=== PATIENT | female | born 1935 | race Caucasian/White ===

== ENCOUNTER 2017-03-03 12:26 | Inpatient (IN) ==
--- NOTE | 2017-03-03 13:08 | Emergency Department Note ---
Disposition Clinical Impression: Bladder mass, Hydroureteronephrosis, Generalized weakness, Weight loss, non- intentional Disposition: Admitted As Inpatient Condition: Undetermined Referrals: Keenan Poe DO [Primary Care Provider] - Forms: ED Satisfaction Letter Time of Disposition: 15:50 Weakness HPI - General Chief complaint: ED Weakness Stated complaint: Dizziness,weak Time Seen by Provider: 03/03/17 12:55 Source: patient, family Mode of arrival: wheelchair Limitations: no limitations Nursing Notes Reviewed: Yes Vital Signs Reviewed: Yes - History of Present Illness HPI Narrative: 81-year-old female arrives [facility] emergency department with complaint of generalized weakness that has been progressively getting worse over the course of the past 4 weeks. The patient was recently treated for urinary tract infection and progressively has become weak since then. The patient has been experiencing weight loss as well. Her PCP is actually ordered her a abdominal CT scan with concern for this weight loss and generalized malaise feeling. The patient denies any fevers, chills, dysuria, chest pain, difficulty breathing but does admit to a small amount abdominal pain on palpation. She is resting comfortably in the room but is very weak on evaluation. The patient denies any other complaints at this time. Family is very concerned for weakness and does not feel as though he can take care of her at home at this time. They stated that at some point he would like to send her to a rehabilitation facility for further care. Pt Subjective Complaint: generalized weakness/fatigue Onset (ago): week(s) (4) Duration: constant, gradually worsening Location: generalized Migration: none Pain Severity: none Pain Scale: 0 Improves with: none Worsens with: none Associated symptoms: Reports: loss of appetite - Related Data Home Medications Medication Instructions Recorded Confirmed Levothyroxine Sodium 75 mcg PO QAM 03/03/17 03/03/17 Multivit-Min/FA/Lycopen/Lutein 1 each PO DAILY 03/03/17 03/03/17 [Centrum Silver Tablet] amLODIPine [Norvasc] 5 mg PO DAILY 03/03/17 03/03/17 Allergies Allergy/AdvReac Type Severity Reaction Status Date / Time Penicillins Allergy Hives Verified 03/03/17 12:30 All systems ED: reviewed and negative except as stated. Constitutional: Reports: weakness. Denies: fever, chills Cardiovascular: Denies: chest pain, palpitations, dyspnea on exertion Respiratory: Denies: cough, dyspnea, wheezes Gastrointestinal: Denies: abdominal pain, nausea, vomiting Neurological: Reports: weakness. Denies: headache, numbness, paresthesias, confusion, abnormal gait, vertigo Endocrine: Reports: fatigue Past Medical History - Past Medical History Attestation: Yes The following information was validated with the patient. Source: patient, obtained from family Medical history: Reports: hypertension, thyroid disease Surgical history: Reports: non-contributory Psychiatric history: Reports: no psych history - Social History Smoking Status: Never smoker Smokeless Tobacco Status: No Alcohol use: Reports: none Drug use: Reports: none Physical Exam - General Limitations: no limitations General appearance: alert, in no apparent distress - Head Head exam: atraumatic, normocephalic, normal inspection - Eye Eye exam: Present: normal appearance, PERRL, EOMI - ENT ENT exam: normal exam, normal oropharynx, mucous membranes moist - Neck Neck exam: Present: normal inspection, full ROM, trachea midline - Chest Chest inspection: Present: normal inspection, symmetric chest wall rise - Respiratory Respiratory exam: Present: normal lung sounds bilaterally - Cardiovascular Cardiovascular exam: Present: regular rate, normal rhythm, normal heart sounds - Abdominal Exam Abdominal exam: Present: soft, Non-Tender. Absent: tenderness, distention, guarding, rebound, rigidity - Extremities Exam Extremities exam: Present: normal inspection, full ROM. Absent: tenderness, pedal edema - Neurological Exam Neurological exam: Present: alert, oriented X3, CN II-XII intact - Expanded Neurological Exam Patient oriented to: Present: person, place, time Course - Consultations Consultation #1: Spoke with Dr. Luna who will see the patient. Recommended admission to hospitalist. 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 The patient has severe hydroureteronephrosis on the right side associated with the artery lesion. Urology recommended admission to hospitalist service. We began the patient on Rocephin for probable UTI associated with this. The patient and family members were made aware and agreed to plan. - Lab Data Lab results reviewed: Yes I reviewed the patient's lab results. Result diagrams: 03/03/17 13:25 03/03/17 13:25 Lab Results 03/03/17 03/03/17 03/03/17 Range/Units 13:20 13:25 13:25 WBC 26.5 H (4.3-11.1) K/mcL RBC 3.32 L (3.82-4.97) M/mcL Hgb 8.4 L (11.5-15.4) g/dL Hct 26.5 L (35.3-44.9) % MCV 79.8 L (83.0-100.0) fL MCH 25.3 L (28.0-33.3) pg MCHC 31.7 (31.6-35.5) g/dL RDW 16.3 H (11.5-14.5) % Plt Count 413 H (140-400) K/mcL MPV 9.1 L (9.4-12.4) fL Seg Neutrophils % 88.0 % Lymphocytes % 6.0 % Monocytes % 6.0 % Neutrophils # 23.3 H (1.6-8.9) K/mcL Lymphocytes # 1.6 (0.6-4.6) K/mcL Monocytes # 1.6 H (0.0-1.3) K/mcL Platelet Estimate Normal (Normal) Sodium 132 L (136-145) mEq/L Potassium 4.2 (3.5-4.5) mEq/L Chloride 98 (98-109) mEq/L Carbon Dioxide 24 (19-29) mEq/L BUN 24 H (7-20) mg/dL Creatinine 1.71 H (0.57-1.11) mg/dL Est GFR ( Amer) 35 L (> 60) Est GFR (Non-Af Amer) 29 L (> 60) BUN/Creatinine Ratio 14 (6-26) Glucose 94 (70-99) mg/dL Calculated Osmolality 278 L (280-300) Calcium 8.8 (8.6-10.8) mg/dL Total Bilirubin (0.2-1.2) mg/dL Direct Bilirubin (0.0-0.5) mg/dL Indirect Bilirubin (0.0-1.2) mg/dL AST (5-34) Units/L ALT (0-55) Units/L Alkaline Phosphatase (38-126) Units/L Troponin I (0-0.03) ng/mL Serum Total Protein (6.0-8.3) g/dL Albumin (3.5-5.0) g/dL Globulin (2.4-3.5) g/dL Albumin/Globulin Ratio (1.1-2.2) Urine Color Dark Yellow (Yellow) Urine Clarity Turbid A (Clear) Urine pH 6.5 (5.0-8.0) pH Units Ur Specific Pearl 1.018 (1.010-1.025) Urine Protein 100 H (Neg-Trace) mg/dL Urine Glucose (UA) Normal (Normal) mg/dL Urine Ketones Trace H (Negative) mg/dL Urine Blood Moderate H (Negative) Urine Nitrite Negative (Negative) Urine Bilirubin Small H (Negative) Urine Urobilinogen Normal (Normal) mg/dL Ur Leukocyte Esterase Large H (Negative) Urine Microscopic RBC 30-50 H (0-3) per hpf Urine Microscopic WBC TNTC H (0-3) per hpf Ur Squamous Epith Cells Moderate H (None-Few) per lpf Urine Bacteria Many H (None-Few) per hpf Hyaline Casts Few (None-Few) per lpf Ur Culture Indicated? YES A (NO) 03/03/17 03/03/17 Range/Units 13:25 13:25 WBC (4.3-11.1) K/mcL RBC (3.82-4.97) M/mcL Hgb (11.5-15.4) g/dL Hct (35.3-44.9) % MCV (83.0-100.0) fL MCH (28.0-33.3) pg MCHC (31.6-35.5) g/dL RDW (11.5-14.5) % Plt Count (140-400) K/mcL MPV (9.4-12.4) fL Seg Neutrophils % % Lymphocytes % % Monocytes % % Neutrophils # (1.6-8.9) K/mcL Lymphocytes # (0.6-4.6) K/mcL Monocytes # (0.0-1.3) K/mcL Platelet Estimate (Normal) Sodium (136-145) mEq/L Potassium (3.5-4.5) mEq/L Chloride (98-109) mEq/L Carbon Dioxide (19-29) mEq/L BUN (7-20) mg/dL Creatinine (0.57-1.11) mg/dL Est GFR ( Amer) (> 60) Est GFR (Non-Af Amer) (> 60) BUN/Creatinine Ratio (6-26) Glucose (70-99) mg/dL Calculated Osmolality (280-300) Calcium (8.6-10.8) mg/dL Total Bilirubin 0.6 (0.2-1.2) mg/dL Direct Bilirubin 0.3 (0.0-0.5) mg/dL Indirect Bilirubin 0.3 (0.0-1.2) mg/dL AST 27 (5-34) Units/L ALT 23 (0-55) Units/L Alkaline Phosphatase 90 (38-126) Units/L Troponin I 0.00 (0-0.03) ng/mL Serum Total Protein 7.0 (6.0-8.3) g/dL Albumin 2.2 L (3.5-5.0) g/dL Globulin 4.8 H (2.4-3.5) g/dL Albumin/Globulin Ratio 0.5 L (1.1-2.2) Urine Color (Yellow) Urine Clarity (Clear) Urine pH (5.0-8.0) pH Units Ur Specific Pearl (1.010-1.025) Urine Protein (Neg-Trace) mg/dL Urine Glucose (UA) (Normal) mg/dL Urine Ketones (Negative) mg/dL Urine Blood (Negative) Urine Nitrite (Negative) Urine Bilirubin (Negative) Urine Urobilinogen (Normal) mg/dL Ur Leukocyte Esterase (Negative) Urine Microscopic RBC (0-3) per hpf Urine Microscopic WBC (0-3) per hpf Ur Squamous Epith Cells (None-Few) per lpf Urine Bacteria (None-Few) per hpf Hyaline Casts (None-Few) per lpf Ur Culture Indicated? (NO) - Radiology Data Radiology results reviewed: Yes I reviewed the patient's radiology results.
[2017-03-03 13:38] LABS: Bilirubin,Urine Small (Negative); Blood,Urine Moderate (Negative); Clarity,Urine Turbid (Clear); Color,Urine Dark Yellow (Yellow); Glucose,Urine (UA) Normal (Normal); Ketones,Urine Trace mg/dL (Negative); Leukocyte Esterase,Urine Large (Negative); Nitrite,Urine Negative (Negative); PH,Urine 6.5 pH Units (5.0-8.0); Protein,Urine 100 mg/dL (Neg-Trace); Specific Gravity,Urine 1.018 (1.010-1.025); Urobilinogen,Urine Normal (Normal)
[2017-03-03 13:42] LABS: Bacteria,Urine Many per hpf (None-Few); Hyaline Casts,Urine Few per lpf (None-Few); Squamous Epithelial Cell,Urine Moderate per lpf (None-Few); WBC,Urine TNTC per hpf (0-3)
[2017-03-03 13:48] LABS: Hematocrit 26.5 % (35.3-44.9); Hemoglobin 8.4 g/dL (11.5-15.4); Mean Corpuscular HGB Conc 31.7 g/dL (31.6-35.5); Mean Corpuscular Hemoglobin 25.3 pg (28.0-33.3); Mean Corpuscular Volume 79.8 fL (83.0-100.0); Mean Platelet Volume 9.1 fL (9.4-12.4); Platelet Count 413 K/mcL (140-400); Red Blood Count 3.32 M/mcL (3.82-4.97); Red Cell Distribution Width 16.3 % (11.5-14.5)
[2017-03-03 13:51] LABS: RBC,Urine 30-50 per hpf (0-3)
--- NOTE | 2017-03-03 13:54 | Emergency Department Note ---
START Narrative - START START: I examined this patient and my medical decision-making was reviewed with the Resident Physician. I agree with the documented findings, disposition and treatment plan as described except to the extent set forth below. 81-year-old female presents emergency room for weakness. She has had some intermittent abdominal discomfort. She feels like she has had urine problems with dysuria. She had a white count 26,000. We evaluated her for possible urinary tract infection witih systemic findings. iv fluids, antibiotics, ct abd cxr clear. pt unable to take care of herself at home due to weakness.
[2017-03-03 14:05] LABS: Calcium 8.8 mg/dL (8.6-10.8); Potassium 4.2 mEq/L (3.5-4.5)
[2017-03-03 14:07] LABS: Albumin 2.2 g/dL (3.5-5.0); Albumin/Globulin Ratio 0.5 (1.1-2.2); Bilirubin,Direct 0.3 mg/dL (0.0-0.5); Bilirubin,Indirect 0.3 mg/dL (0.0-1.2); Bilirubin,Total 0.6 mg/dL (0.2-1.2); Globulin 4.8 g/dL (2.4-3.5)
[2017-03-03] MEDS ORDERED: 0.9 % Sodium Chloride 1,000 ML IVC SCH (14:15)
[2017-03-03 14:22] LABS: Lymphocytes # 1.6 K/mcL (0.6-4.6); Monocytes # 1.6 K/mcL (0.0-1.3); Neutrophils # 23.3 K/mcL (1.6-8.9); Platelet Estimate Normal (Normal)
[2017-03-03] MEDS ORDERED: Acetaminophen 325 MG TABLET PO PRN (17:16)
--- NOTE | 2017-03-03 17:34 | Urology - Consult Note ---
Date of Encounter: 03/03/17 Time of Encounter: 17:32 - Assessment and Plan (1) Bladder mass Current Visit: Yes Status: Acute Assessment and plan: 81-year-old woman with a large bladder mass. I discussed options with her. We discussed observation versus transurethral resection of bladder tumor. I recommend proceeding with a transurethral resection of bladder tumor to provide a tissue diagnosis and to provide staging. She was informed of the risks of the surgery which include but are not limited to bleeding, infection, injury to structures, need for further procedures, incomplete treatment, bladder perforation, need for open repair, need for catheter, and the risk of anesthesia. She will discuss further with her family and they'll make a decision regarding operative planning. I will follow along. (2) Hydroureteronephrosis Current Visit: Yes Status: Acute Assessment and plan: She has severe right hydroureteronephrosis. This mass seems to extend through the ureterovesical junction. I recommend placement of a right nephrostomy tube. I will check an INR today. She'll be nothing by mouth past midnight. I informed the radiology after-hours line regarding the procedure. Urology CN:HPI Consult date: 03/03/17 Reason for consult Urology: Other (Bladder mass) Requesting physician: Daniel Peralta History of present illness: 81-year-old woman presented to the emergency department today with progressive weakness and weight loss. She underwent a CT scan of the abdomen and pelvis which showed a large mass within the bladder and evidence of severe right hydroureteronephrosis. There was mild dilation of the left ureter and renal pelvis. The mass extends within the bladder and seems to move outside of the expected location of the bladder lateral on the right side. She denies any history of hematuria. She has some urinary urgency and occasional incontinence. She says she is a lifelong nonsmoker and denies living with a smoker. She worked as a clerk secretary in the school system. Past Med Surg Social Fam HX - Past Medical History Medical history: hypertension, thyroid disease Psychiatric history: no psych history - Past Surgical History Surgical History: non-contributory - Social History Smoking Status: Never smoker Smokeless Tobacco Status: No Alcohol use: none Drug use: none - Family History Mother History Unknown: Yes Living Status: Medications and Allergies Levothyroxine Sodium 75 mcg PO QAM 03/03/17 [History] Multivit-Min/FA/Lycopen/Lutein [Centrum Silver Tablet] 1 each PO DAILY 03/03/17 [History] amLODIPine [Norvasc] 5 mg PO DAILY 03/03/17 [History] 3 Allergy/AdvReac Type Severity Reaction Status Date / Time Penicillins Allergy Hives Verified 03/03/17 12:30 Review of Systems - Constitutional weakness, no chills, no fever(s) - EENT Nose, mouth and throat: no dizziness - Cardiovascular no chest pain - Respiratory no dyspnea - Gastrointestinal no nausea, no vomiting - Genitourinary Genitourinary: no flank pain, no hematuria - Musculoskeletal no back pain - Integumentary no erythema, no rash - Neurological no weakness - Psychiatric no suicidal ideation - Hematologic/Lymphatic no easy bleeding - Allergic/Immunologic no wheezing Exam Initial Vital Signs Temp Pulse Resp BP Pulse Ox 98.3 F 95 18 104/68 96 03/03/17 12:33 03/03/17 12:33 03/03/17 12:33 03/03/17 12:33 03/03/17 12:33 - General physical appearance Present: well developed, well nourished, no distress - Eyes Absent: icteric - ENT Present: normal nares - Neck Present: trachea midline - Respiratory Present: normal respiratory effort - Cardiovascular Cardiovascular exam IM: RRR - Abdomen Abdomen: Present: soft Urology Results - Labs 03/03/17 13:25 03/03/17 13:25 Abnormal lab results WBC 26.5 K/mcL (4.3-11.1) H 03/03/17 13:25 RBC 3.32 M/mcL (3.82-4.97) L 03/03/17 13:25 Hgb 8.4 g/dL (11.5-15.4) L 03/03/17 13:25 Hct 26.5 % (35.3-44.9) L 03/03/17 13:25 MCV 79.8 fL (83.0-100.0) L 03/03/17 13:25 MCH 25.3 pg (28.0-33.3) L 03/03/17 13:25 RDW 16.3 % (11.5-14.5) H 03/03/17 13:25 Plt Count 413 K/mcL (140-400) H 03/03/17 13:25 MPV 9.1 fL (9.4-12.4) L 03/03/17 13:25 Neutrophils # 23.3 K/mcL (1.6-8.9) H 03/03/17 13:25 Monocytes # 1.6 K/mcL (0.0-1.3) H 03/03/17 13:25 Sodium 132 mEq/L (136-145) L 03/03/17 13:25 BUN 24 mg/dL (7-20) H 03/03/17 13:25 Creatinine 1.71 mg/dL (0.57-1.11) H 03/03/17 13:25 Est GFR ( Amer) 35 (> 60) L 03/03/17 13:25 Est GFR (Non-Af Amer) 29 (> 60) L 03/03/17 13:25 Calculated Osmolality 278 (280-300) L 03/03/17 13:25 Albumin 2.2 g/dL (3.5-5.0) L 03/03/17 13:25 Globulin 4.8 g/dL (2.4-3.5) H 03/03/17 13:25 Albumin/Globulin Ratio 0.5 (1.1-2.2) L 03/03/17 13:25 Urine Clarity Turbid (Clear) A 03/03/17 13:20 Urine Protein 100 mg/dL (Neg-Trace) H 03/03/17 13:20 Urine Ketones Trace mg/dL (Negative) H 03/03/17 13:20 Urine Blood Moderate (Negative) H 03/03/17 13:20 Urine Bilirubin Small (Negative) H 03/03/17 13:20 Ur Leukocyte Esterase Large (Negative) H 03/03/17 13:20 Urine Microscopic RBC 30-50 per hpf (0-3) H 03/03/17 13:20 Urine Microscopic WBC TNTC per hpf (0-3) H 03/03/17 13:20 Ur Squamous Epith Cells Moderate per lpf (None-Few) H 03/03/17 13:20 Urine Bacteria Many per hpf (None-Few) H 03/03/17 13:20 Ur Culture Indicated? YES (NO) A 03/03/17 13:20 All other labs normal. - Imaging CT scan - abdomen: report reviewed, image reviewed CT scan - pelvis: report reviewed, image reviewed Consult Discharge Plan - Plan Referrals: Keenan Poe DO [Primary Care Provider] -
--- NOTE | 2017-03-03 17:55 | Internal Med History&Physical ---
Date of Encounter: 03/03/17 Time of Encounter: 17:00 Assessment and Plan (1) UTI (urinary tract infection) Current visit: Yes Status: Acute Patient had symptoms of UTI. Urinalysis shows elevated WBC. Previous urine culture on 01/07/17 shows Escherichia coli sensitive to Rocephin. - Patient had 1 dose of Rocephin in ER - We will continue Rocephin 1000 mg IV daily - Follow up of further urine culture Qualifiers: Urinary tract infection type: acute cystitis Hematuria presence: with hematuria Qualified Code(s): N30.01 - Acute cystitis with hematuria (2) Hypertension Current visit: Yes Status: Acute Patient has poor uptake and a generalized weakness. Her BP is at lower side. Will hold home medication amlodipine 5 mg daily. Closely monitor BP Qualifiers: Hypertension type: essential hypertension Qualified Code(s): I10 - Essential (primary) hypertension (3) Acute kidney injury Current visit: Yes Status: Acute Probably due to obstruction causing the right-sided hydronephrosis. Will give mild hydration as patient has poor uptake. Closely monitor renal function. Plan for IR nephrotomy tomorrow (4) DVT prophylaxis Current visit: Yes Status: Acute EPCD, may start heparin after procedure (5) Hypothyroidism Current visit: Yes Status: Acute Continue home medication Synthroid Qualifiers: Hypothyroidism type: acquired Qualified Code(s): E03.9 - Hypothyroidism, unspecified (6) Bladder mass Current visit: Yes Status: Acute Urology consul on case. Plan for IR nephrotomy tomorrow. Tumor resection after nephrotomy tube placed, maybe on Wednesday (7) Hydroureteronephrosis Current visit: Yes Status: Acute IR nephrotomy tube as planned above (8) Generalized weakness Current visit: Yes Status: Acute Due to tumor and anemia (probably caused by chronic blood loss). Will place patient on PTOT, nutrition consult for nutrition supplement (9) Weight loss, non-intentional Current visit: Yes Status: Acute Management as above Internal Medicine - H&P: HPI Chief complaint: Generalized weakness Admitted From: Home Plans for Post Hospital Care: Transfer Inp Rehab Fac History of present illness: Ms. Mcginnis is a 81 year old female with no significant past medical history ( only mild hypertension and hypothyroidism) present to ER for generalized weakness for 6 weeks. Patient was found UTI on a regular physical exam with PCP in 6 weeks ago and was treated with Bactrim. However, her condition is getting worse with generalized weakness, pain on the low back, with weight loss for about 20-25 pounds over last 6 weeks. Laterly patient also developed dysuria, burning, increased frequency, and urgency. Patient's daughter reports trace of blood on underwear although gross hematuria not noticed. Patient denies fever, nausea, vomiting, flank pain. Patient had CT abdomen in emergency room and was found 8 cm bladder tumor with obstructive right side hydronephrosis/hydroureterosis. Pt was admitted for UTI, bladder tumor, hydronephrosis, and MELANIE. I have discussed CODE STATUS with patient, patient clearly states she does not want CPR if cardiac arrest happens. Patient can accept intubation for anesthesia but does not want keep her on life supportive machine. DNR CCA has placed. Past Med Surg Social Fam HX - Past Medical History Medical history: hypertension, thyroid disease Psychiatric history: no psych history - Past Surgical History Surgical History: non-contributory - Social History Smoking Status: Never smoker Smokeless Tobacco Status: No Alcohol use: none Drug use: none - Family History Mother History Unknown: Yes Living Status: Internal Medicine - H&P: Meds Levothyroxine Sodium 75 mcg PO QAM 03/03/17 [History] Multivit-Min/FA/Lycopen/Lutein [Centrum Silver Tablet] 1 each PO DAILY 03/03/17 [History] amLODIPine [Norvasc] 5 mg PO DAILY 03/03/17 [History] 3 Allergy/AdvReac Type Severity Reaction Status Date / Time Penicillins Allergy Hives Verified 03/03/17 12:30 All Systems PM: A 10-system review of systems was performed and is negative for pertinent findings except as documented above in the HPI. - Constitutional Vitals: Temp Pulse Resp BP Pulse Ox 98.0 F 84 14 115/66 96 03/03/17 16:41 03/03/17 16:41 03/03/17 16:41 03/03/17 16:41 03/03/17 16:41 General appearance: Present: cachectic, A&O X 3, no acute distress, answers questions appropriately - Head Head exam: Present: atraumatic, normocephalic - Eye Eye exam: Present: PERRL, conjuntiva pink, sclera anicteric Pupils: Present: PERRL - Neck Neck exam general surgery: Present: supple, trachea midline. Absent: lymphadenopathy - Respiratory Respiratory exam: Present: CTAB. Absent: accessory muscle use, rales, rhonchi, wheezes - Cardiovascular Cardiovascular exam: Present: RRR, +S1, +S2. Absent: diastolic murmur, gallop, rubs, systolic murmur - GI/Abdominal GI/Abdominal exam: Present: normal bowel sounds, soft, no peritoneal signs. Absent: distended, tenderness - Extremities Exam Extremities exam: Present: warm, radial pulses palpable and symmetrical. Absent : calf tenderness, cyanotic, pedal edema - Neurological Exam Neurological exam: Present: CN II-XII intact, oriented X3, no focal deficits. Absent: pronater drift, facial droop, speech deficit - Skin Skin exam: Present: dry, intact Internal Med - H&P Results - Labs CBC & Chem 7: 03/03/17 13:25 03/03/17 13:25
[2017-03-03] MEDS: 0.9 % Sodium Chloride 1,000 ML IVC SCH (17:59)
[2017-03-03] MEDS ORDERED: *HR* Heparin 5,000 UNIT/ML VIAL SQ SCH (18:00)
[2017-03-03 18:14] LABS: INR 1.2; Prothrombin Time 12.7 Seconds (9.4-12.1)
[2017-03-03 18:50] LABS: Thyroid Stimulating Hormone 3.482 mcIU/mL (0.350-4.840)
[2017-03-04 03:19] LABS: Hematocrit 22.7 % (35.3-44.9); Hemoglobin 7.2 g/dL (11.5-15.4); Mean Corpuscular HGB Conc 31.7 g/dL (31.6-35.5); Mean Corpuscular Hemoglobin 25.4 pg (28.0-33.3); Mean Corpuscular Volume 79.9 fL (83.0-100.0); Mean Platelet Volume 9.1 fL (9.4-12.4); Platelet Count 353 K/mcL (140-400); Red Blood Count 2.84 M/mcL (3.82-4.97); Red Cell Distribution Width 16.1 % (11.5-14.5)
[2017-03-04 03:35] LABS: Calcium 7.8 mg/dL (8.6-10.8); Magnesium 1.8 mg/dL (1.6-2.6); Potassium 3.6 mEq/L (3.5-4.5)
[2017-03-04 03:36] LABS: % Iron Saturation 12 % (15-50); Iron 12 mcg/dL (50-170); Transferrin 70 mg/dL (180-382)
[2017-03-04 03:56] LABS: Ferritin 182 ng/ml (5-204)
--- NOTE | 2017-03-04 07:35 | Urology Progress Note ---
Date of Encounter: 03/04/17 Time of Encounter: 07:34 - Assessment and Plan (1) Bladder mass Current Visit: Yes Status: Acute Assessment and plan: Family members were not present at the time rounding today. I will discuss with them later on. We will need to consider transurethral resection of bladder tumor. (2) Hydroureteronephrosis Current Visit: Yes Status: Acute Assessment and plan: Plan for right nephrostomy tube today. Progress Note Narrative: Doing well this morning. No issues at this time. Objective Initial Vital Signs Temp Pulse Resp BP Pulse Ox 98.3 F 95 18 104/68 96 03/03/17 12:33 03/03/17 12:33 03/03/17 12:33 03/03/17 12:33 03/03/17 12:33 - General physical appearance Present: well developed, well nourished, no distress - Respiratory Present: normal respiratory effort - Abdomen Present: soft - Labs 03/04/17 03:04 03/04/17 03:04 Diabetes panel 03/04/17 Range/Units 03:04 Sodium 133 L (136-145) mEq/L Potassium 3.6 (3.5-4.5) mEq/L Chloride 104 (98-109) mEq/L Carbon Dioxide 22 (19-29) mEq/L BUN 24 H (7-20) mg/dL Creatinine 1.42 H (0.57-1.11) mg/dL Glucose 96 (70-99) mg/dL Calcium 7.8 L (8.6-10.8) mg/dL Calcium panel 03/04/17 Range/Units 03:04 Calcium 7.8 L (8.6-10.8) mg/dL Pituitary panel 03/04/17 Range/Units 03:04 Sodium 133 L (136-145) mEq/L Potassium 3.6 (3.5-4.5) mEq/L Chloride 104 (98-109) mEq/L Carbon Dioxide 22 (19-29) mEq/L BUN 24 H (7-20) mg/dL Creatinine 1.42 H (0.57-1.11) mg/dL Glucose 96 (70-99) mg/dL Calcium 7.8 L (8.6-10.8) mg/dL Adrenal panel 03/04/17 Range/Units 03:04 Sodium 133 L (136-145) mEq/L Potassium 3.6 (3.5-4.5) mEq/L Chloride 104 (98-109) mEq/L Carbon Dioxide 22 (19-29) mEq/L BUN 24 H (7-20) mg/dL Creatinine 1.42 H (0.57-1.11) mg/dL Glucose 96 (70-99) mg/dL Calcium 7.8 L (8.6-10.8) mg/dL Consult Discharge Plan - Plan Referrals: Keenan Poe DO [Primary Care Provider] -
[2017-03-04] MEDS: Multivit/Ca/Min/Fe/FA 1 TAB TABLET PO SCH (07:58)
[2017-03-04] MEDS ORDERED: amLODIPine 5 MG TABLET PO SCH (09:00)
--- NOTE | 2017-03-04 12:35 | Internal Med Progress Note ---
Date of Encounter: 03/04/17 Time of Encounter: 09:00 - Assessment and plan (1) UTI (urinary tract infection) Current Visit: Yes Status: Acute Assessment and plan: We will continue Rocephin IV daily. Follow up urine culture Qualifiers: Urinary tract infection type: acute cystitis Hematuria presence: with hematuria Qualified Code(s): N30.01 - Acute cystitis with hematuria (2) Hypertension Current Visit: Yes Status: Acute Assessment and plan: BP is not high. Home medications amlodipine is on hold Qualifiers: Hypertension type: essential hypertension Qualified Code(s): I10 - Essential (primary) hypertension (3) Acute kidney injury Current Visit: Yes Status: Acute Assessment and plan: Probably due to obstruction caused by bladder mass and right-sided hydronephrosis. Continue low rate IV fluid. Nephrostomy today (4) DVT prophylaxis Current Visit: Yes Status: Acute Assessment and plan: EPCD. May start anticoagulation after procedure (5) Hypothyroidism Current Visit: Yes Status: Acute Assessment and plan: Continue home medications Qualifiers: Hypothyroidism type: acquired Qualified Code(s): E03.9 - Hypothyroidism, unspecified (6) Bladder mass Current Visit: Yes Status: Acute Assessment and plan: Urology is on case. Plan for tumor resection (7) Hydroureteronephrosis Current Visit: Yes Status: Acute Assessment and plan: Will have a nephrostomy tube as planned above (8) Generalized weakness Current Visit: Yes Status: Acute Assessment and plan: Patient has generalized weakness, anemia, body with loss. Patient was found bladder tumor, most likely malignancy. Will continue supportive treatment. Dietitian consult for nutrition supplement. PTOT evaluation recommend home discharge (9) Weight loss, non-intentional Current Visit: Yes Status: Acute Assessment and plan: Most likely due to bladder mass. - Time Spent With Patient 25 - 35 minutes - Subjective Interval history: Patient is a 81-year-old female with history of hypertension and hypothyroidism admitted for weakness and bladder mass with right-sided hydronephrosis. Patient was seen and examined today. Still feels weak and less energy. Poor uptake. Plan for nephrostomy today. Kidney function slightly improved. No fever, WBC is still high but trends down. - Constitutional Vitals: Temp Pulse Resp BP Pulse Ox 98.5 F 84 14 119/67 96 03/04/17 10:55 03/04/17 10:55 03/04/17 10:55 03/04/17 10:55 03/04/17 10:55 General appearance: Present: cachectic, A&O X 3, no acute distress, answers questions appropriately - Head Head exam: Present: atraumatic, normocephalic - Eye Eye exam: Present: PERRL, conjuntiva pink, sclera anicteric Pupils: Present: PERRL - Neck Neck exam general surgery: Present: supple, trachea midline. Absent: lymphadenopathy - Respiratory Respiratory exam: Present: CTAB. Absent: accessory muscle use, rales, rhonchi, wheezes - Cardiovascular Cardiovascular exam: Present: RRR, +S1, +S2. Absent: diastolic murmur, gallop, rubs, systolic murmur - GI/Abdominal GI/Abdominal exam: Present: normal bowel sounds, soft, no peritoneal signs. Absent: distended, tenderness - Extremities Exam Extremities exam: Present: warm, radial pulses palpable and symmetrical. Absent : calf tenderness, cyanotic, pedal edema - Neurological Exam Neurological exam: Present: CN II-XII intact, oriented X3, no focal deficits. Absent: pronater drift, facial droop, speech deficit - Skin Skin exam: Present: dry, intact Internal Medicine: Result - Labs CBC & Chem 7: 03/04/17 03:04 03/04/17 03:04 Labs: Short CBC 03/04/17 Range/Units 03:04 WBC 22.1 H (4.3-11.1) K/mcL Hgb 7.2 L (11.5-15.4) g/dL Hct 22.7 L (35.3-44.9) % Plt Count 353 (140-400) K/mcL BMP 03/04/17 03:04 Sodium 133 L Potassium 3.6 Chloride 104 Carbon Dioxide 22 BUN 24 H Creatinine 1.42 H Glucose 96 Calcium 7.8 L - ABG Interpretation ABG results: PT/INR, D-dimer PT 12.7 Seconds (9.4-12.1) H 03/03/17 17:43 Consult Discharge Plan - Plan Referrals: Keenan Poe DO [Primary Care Provider] -
[2017-03-04] MEDS ORDERED: Heparin 1,000 UNITS/500 mL NS 500 ML ONE (13:25)
[2017-03-04] MEDS ORDERED: *HR* Midazolam HCl 2 MG/2 ML VIAL IVP PRN (13:37)
[2017-03-04] MEDS ORDERED: *HR* FentaNYL (PF) 100 MCG/2 ML VIAL IVP PRN (13:37)
[2017-03-04] MEDS ORDERED: *HR* FentaNYL (PF) 100 MCG/2 ML VIAL ONE (13:53)
[2017-03-04] MEDS ORDERED: *HR* Midazolam HCl 2 MG/2 ML VIAL ONE (13:53)
[2017-03-04] MEDS ORDERED: Levofloxacin 500 MG/100 ML 500 MG/100 ML BAG IVPB ONE (14:22)
--- NOTE | 2017-03-04 14:46 | IR Procedure Note ---
Date of procedure: 03/04/17 Consent Obtained: Verbal consent, Written consent Timeout: Correct patient and procedure verified, Correct site verified, Time out performed, Skin prep completed Local anesthetic: Lidocaine 1% Indications: Ureteral obstruction Procedure Performed: Right nephrostomy tube insertion Site/Technique: Right nephrostomy tube placed in VIR Results/Findings: Severe right hydronephrosis Estimated blood loss (cc): 1 Complications: None; Tolerated procedure well Post Procedure Treatment Plan: Nephrostomy tube to gravity drainage
[2017-03-04] MEDS: 0.9 % Sodium Chloride 1,000 ML IVC SCH (17:09)
--- NOTE | 2017-03-04 18:57 | Urology Progress Note ---
Date of Encounter: 03/04/17 Time of Encounter: 18:55 - Assessment and Plan (1) Bladder mass Current Visit: Yes Status: Acute Assessment and plan: She has a large bladder mass. I recommend proceeding with a transurethral resection of bladder tumor. She was informed of the risks of surgery which include but are not limited to bleeding, infection, injury to structures, need for further procedures, bladder perforation, need for catheter, and the risk of anesthesia. She is willing to proceed. (2) Hydroureteronephrosis Current Visit: Yes Status: Acute Assessment and plan: She is status post right nephrostomy tube placement. Urine is clear. Progress Note Narrative: 81-year-old woman with right ureteral obstruction and a bladder mass. She had a right nephrostomy tube placed today. I spoke with her family extensively today regarding treatment of her bladder tumor. Objective Initial Vital Signs Temp Pulse Resp BP Pulse Ox 98.3 F 95 18 104/68 96 03/03/17 12:33 03/03/17 12:33 03/03/17 12:33 03/03/17 12:33 03/03/17 12:33 - General physical appearance Present: well developed, well nourished, no distress - Respiratory Present: normal respiratory effort - Abdomen Present: soft (Right nephrostomy tube in place with clear urine.) - Labs 03/04/17 03:04 03/04/17 03:04 Diabetes panel 03/04/17 Range/Units 03:04 Sodium 133 L (136-145) mEq/L Potassium 3.6 (3.5-4.5) mEq/L Chloride 104 (98-109) mEq/L Carbon Dioxide 22 (19-29) mEq/L BUN 24 H (7-20) mg/dL Creatinine 1.42 H (0.57-1.11) mg/dL Glucose 96 (70-99) mg/dL Calcium 7.8 L (8.6-10.8) mg/dL Calcium panel 03/04/17 Range/Units 03:04 Calcium 7.8 L (8.6-10.8) mg/dL Pituitary panel 03/04/17 Range/Units 03:04 Sodium 133 L (136-145) mEq/L Potassium 3.6 (3.5-4.5) mEq/L Chloride 104 (98-109) mEq/L Carbon Dioxide 22 (19-29) mEq/L BUN 24 H (7-20) mg/dL Creatinine 1.42 H (0.57-1.11) mg/dL Glucose 96 (70-99) mg/dL Calcium 7.8 L (8.6-10.8) mg/dL Adrenal panel 03/04/17 Range/Units 03:04 Sodium 133 L (136-145) mEq/L Potassium 3.6 (3.5-4.5) mEq/L Chloride 104 (98-109) mEq/L Carbon Dioxide 22 (19-29) mEq/L BUN 24 H (7-20) mg/dL Creatinine 1.42 H (0.57-1.11) mg/dL Glucose 96 (70-99) mg/dL Calcium 7.8 L (8.6-10.8) mg/dL Consult Discharge Plan - Plan Referrals: Keenan Poe DO [Primary Care Provider] -
--- NOTE | 2017-03-04 20:01 | Electrocardiograph Report ---
[place] [id number] Test Date: 2017-03-03 Pat Name: Carol Mcginnis Department: 104 Room: 3A Gender: F Sql Et[employer] Developer: XANDER : 1935 Requested By: Beverly See Order Number: [id number] Reading MD: Jonathan Owens MD Measurements Intervals [place] Rate: 86 P: 9 SC: 142 QRS: -9 QRSD: 78 T: -2 QT: 346 QTc: 389 Interpretive Statements SINUS RHYTHM Electronically Signed On 03-04-2017 19:59:51 EDT by Jonathan Owens MD
[2017-03-05] MEDS: 0.9 % Sodium Chloride 1,000 ML IVC SCH ×2 (02:52→22:58)
[2017-03-05 05:57] LABS: Basophils % 0.1 %; Eosinophils # 0.1 K/mcL (0.0-0.6); Eosinophils % 0.5 %; Hematocrit 24.6 % (35.3-44.9); Hemoglobin 7.5 g/dL (11.5-15.4); Immature Granulocytes % 0.5 % (0-4); Lymphocytes # 0.9 K/mcL (0.6-4.6); Lymphocytes % 4.6 %; Mean Corpuscular HGB Conc 30.5 g/dL (31.6-35.5); Mean Platelet Volume 9.5 fL (9.4-12.4); Monocytes # 0.9 K/mcL (0.0-1.3); Monocytes % 4.6 %; Platelet Count 352 K/mcL (140-400); Red Cell Distribution Width 16.6 % (11.5-14.5); Segmented Neutrophils % 89.7 %
[2017-03-05 06:01] LABS: Calcium 7.7 mg/dL (8.6-10.8); Potassium 3.7 mEq/L (3.5-4.5)
--- NOTE | 2017-03-05 06:43 | Urology Progress Note ---
Date of Encounter: 03/05/17 Time of Encounter: 06:42 - Assessment and Plan (1) Bladder mass Current Visit: Yes Status: Acute Assessment and plan: Plan for transurethral resection of bladder tumor. She is aware of all risks and is willing to proceed. She has been on ceftriaxone for IV antibiotic. (2) Hydroureteronephrosis Current Visit: Yes Status: Acute Progress Note Narrative: She is doing well as morning. Her nephrostomy tube is draining well. It is clear to light pink color. She is ready for TURBT today. Objective Initial Vital Signs Temp Pulse Resp BP Pulse Ox 98.3 F 95 18 104/68 96 03/03/17 12:33 03/03/17 12:33 03/03/17 12:33 03/03/17 12:33 03/03/17 12:33 - General physical appearance Present: well developed, well nourished, no distress - Respiratory Present: normal respiratory effort - Abdomen Present: soft (Nephrostomy tube in place with clear urine.) - Labs 03/05/17 04:50 03/05/17 04:50 Diabetes panel 03/05/17 Range/Units 04:50 Sodium 134 L (136-145) mEq/L Potassium 3.7 (3.5-4.5) mEq/L Chloride 104 (98-109) mEq/L Carbon Dioxide 21 (19-29) mEq/L BUN 18 (7-20) mg/dL Creatinine 1.26 H (0.57-1.11) mg/dL Glucose 59 L (70-99) mg/dL Calcium 7.7 L (8.6-10.8) mg/dL Calcium panel 03/05/17 Range/Units 04:50 Calcium 7.7 L (8.6-10.8) mg/dL Pituitary panel 03/05/17 Range/Units 04:50 Sodium 134 L (136-145) mEq/L Potassium 3.7 (3.5-4.5) mEq/L Chloride 104 (98-109) mEq/L Carbon Dioxide 21 (19-29) mEq/L BUN 18 (7-20) mg/dL Creatinine 1.26 H (0.57-1.11) mg/dL Glucose 59 L (70-99) mg/dL Calcium 7.7 L (8.6-10.8) mg/dL Adrenal panel 03/05/17 Range/Units 04:50 Sodium 134 L (136-145) mEq/L Potassium 3.7 (3.5-4.5) mEq/L Chloride 104 (98-109) mEq/L Carbon Dioxide 21 (19-29) mEq/L BUN 18 (7-20) mg/dL Creatinine 1.26 H (0.57-1.11) mg/dL Glucose 59 L (70-99) mg/dL Calcium 7.7 L (8.6-10.8) mg/dL Consult Discharge Plan - Plan Referrals: Keenan Poe DO [Primary Care Provider] -
[2017-03-05] MEDS: Multivit/Ca/Min/Fe/FA 1 TAB TABLET PO SCH (07:28)
--- NOTE | 2017-03-05 14:05 | Anesthesia Evaluation PreOp ---
Date of Encounter: 03/05/17 Time of Encounter: 14:02 - Past History Planned Operation: TURBT Cardiac History: HTN Pulmonary History: Denies Any Significant HX CLERICAL ASSIGNER History: Denies Any Significant HX Other Medical History: Renal (michelle), Thyroid, Other (bladder tumor; blood in her urine; anemia - hgb 7.5) Anesthesia History: No Prior Anesthetic Complications Alcohol Use: none Drug use: none Medications and Allergies Levothyroxine Sodium 75 mcg PO QAM 03/03/17 [History] Multivit-Min/FA/Lycopen/Lutein [Centrum Silver Tablet] 1 each PO DAILY 03/03/17 [History] amLODIPine [Norvasc] 5 mg PO DAILY 03/03/17 [History] 3 Allergy/AdvReac Type Severity Reaction Status Date / Time Penicillins Allergy Hives Verified 03/03/17 12:30 - Meds/Allergy Pre-op Review Medications Reviewed: Yes Allergies Reviewed: Yes Beta Blockers on Current Med List: No Anesthesia Results - Labs 03/05/17 04:50 03/05/17 04:50 - Imaging EKG: report reviewed, image reviewed (SR) Anesthesia Exam Last Vital Signs Temp 98.4 F 03/05/17 11:03 Pulse 83 03/05/17 11:03 Resp 14 03/05/17 11:03 BP 109/58 03/05/17 11:03 Pulse Ox 94 03/05/17 11:03 Weight: 56 kg NPO (# of Hours): > 8 hrs - HEENT Pupil (Motor): Pupils equal, EOMI Mallampati: III Teeth: Missing Oral Opening: Greater than 3 - CLERICAL ASSIGNER LOC: Oriented CLERICAL ASSIGNER Motor: Normal RUE, Normal LUE, Normal RLE, Normal LLE, Normal Face - Cardiac Rhythm: Regular Murmur: None - Pulmonary Breath Sounds: bilateral Clear Respiratory Effort: Symmetrical Anesthesia Assess/Plan ASA Score: 3 (bladder tumor, severe anemia (hgb 7.5), HTN, hypothyroidism) Modified [place] Scale for Level of Consciousness: Cooperative, oriented, and tranquil Anesthetic Plan: General, Precautions (ordered T&C; ok to be a full code nelida- operatively (as cardiac arrest around the time of surgery/anesthesia can lead to reversible causes of cardiac arrest)) Monitoring Plan: Standard Monitors Recovery Plan: PACU
[2017-03-05] MEDS ORDERED: Lidocaine -MPF 2% 2 ML VIAL ONE (14:14)
[2017-03-05] MEDS ORDERED: *HR* FentaNYL (PF) 100 MCG/2 ML VIAL ONE (14:14)
[2017-03-05] MEDS ORDERED: *HR* Propofol 200 MG/20 ML VIAL IVP ONE (14:14)
[2017-03-05] MEDS ORDERED: Dexamethasone 4 MG/ML VIAL ONE (14:53)
[2017-03-05] MEDS ORDERED: Ondansetron 4 MG/2 ML VIAL ONE (14:53)
[2017-03-05] MEDS ORDERED: *HR* Morphine 2 MG/ML SYRINGE IVP PRN (15:03)
--- NOTE | 2017-03-05 15:12 | Internal Med Progress Note ---
Date of Encounter: 03/05/17 Time of Encounter: 10:00 - Assessment and plan (1) UTI (urinary tract infection) Current Visit: Yes Status: Acute Assessment and plan: We will continue Rocephin IV daily. Urine culture showed Escherichia coli sensitive to Rocephin Qualifiers: Urinary tract infection type: acute cystitis Hematuria presence: with hematuria Qualified Code(s): N30.01 - Acute cystitis with hematuria (2) Hypertension Current Visit: Yes Status: Acute Assessment and plan: BP is not high. Home medications amlodipine is on hold Qualifiers: Hypertension type: essential hypertension Qualified Code(s): I10 - Essential (primary) hypertension (3) Acute kidney injury Current Visit: Yes Status: Acute Assessment and plan: Probably due to obstruction caused by bladder mass and right-sided hydronephrosis. Continue low rate IV fluid. Nephrostomy done. (4) DVT prophylaxis Current Visit: Yes Status: Acute Assessment and plan: EPCD. May start anticoagulation after procedure (5) Hypothyroidism Current Visit: Yes Status: Acute Assessment and plan: Continue home medications Qualifiers: Hypothyroidism type: acquired Qualified Code(s): E03.9 - Hypothyroidism, unspecified (6) Bladder mass Current Visit: Yes Status: Acute Assessment and plan: Urology is on case. Plan for tumor resection (7) Hydroureteronephrosis Current Visit: Yes Status: Acute Assessment and plan: Had nephrostomy tube placed (8) Generalized weakness Current Visit: Yes Status: Acute Assessment and plan: Patient has generalized weakness, anemia, body with loss. Patient was found bladder tumor, most likely malignancy. Will continue supportive treatment. Dietitian consult for nutrition supplement. PTOT evaluation recommend home discharge (9) Weight loss, non-intentional Current Visit: Yes Status: Acute Assessment and plan: Most likely due to bladder mass. - Time Spent With Patient 25 - 35 minutes - Subjective Interval history: Patient is a 81-year-old female with history of hypertension and hypothyroidism admitted for weakness and bladder mass with right-sided hydronephrosis. Patient was seen and examined today. Still feels weak but better than yesterday. Poor uptake. Had nephrostomy yesterday. Kidney function slightly improved. No fever, WBC is still high but trends down. Plan for bladder tumor resection today by urologist. Urine culture shows Escherichia coli sensitive to Rocephin. Continue Rocephin for UTI. - Constitutional Vitals: Temp Pulse Resp BP Pulse Ox 98.4 F 83 14 109/58 94 03/05/17 11:03 03/05/17 11:03 03/05/17 11:03 03/05/17 11:03 03/05/17 11:03 General appearance: Present: cachectic, A&O X 3, no acute distress, answers questions appropriately - Head Head exam: Present: atraumatic, normocephalic - Eye Eye exam: Present: PERRL, conjuntiva pink, sclera anicteric Pupils: Present: PERRL - Neck Neck exam general surgery: Present: supple, trachea midline. Absent: lymphadenopathy - Respiratory Respiratory exam: Present: CTAB. Absent: accessory muscle use, rales, rhonchi, wheezes - Cardiovascular Cardiovascular exam: Present: RRR, +S1, +S2. Absent: diastolic murmur, gallop, rubs, systolic murmur - GI/Abdominal GI/Abdominal exam: Present: normal bowel sounds, soft, no peritoneal signs. Absent: distended, tenderness Additional comments: Right-sided nephrostomy tube in place - Extremities Exam Extremities exam: Present: warm, radial pulses palpable and symmetrical. Absent : calf tenderness, cyanotic, pedal edema - Neurological Exam Neurological exam: Present: CN II-XII intact, oriented X3, no focal deficits. Absent: pronater drift, facial droop, speech deficit - Skin Skin exam: Present: dry, intact Internal Medicine: Result - Labs CBC & Chem 7: 03/05/17 04:50 03/05/17 04:50 Labs: Short CBC 03/05/17 Range/Units 04:50 WBC 20.1 H (4.3-11.1) K/mcL Hgb 7.5 L (11.5-15.4) g/dL Hct 24.6 L (35.3-44.9) % Plt Count 352 (140-400) K/mcL Neutrophils # 18.0 H (1.6-8.9) K/mcL BMP 03/05/17 04:50 Sodium 134 L Potassium 3.7 Chloride 104 Carbon Dioxide 21 BUN 18 Creatinine 1.26 H Glucose 59 L Calcium 7.7 L - ABG Interpretation ABG results: PT/INR, D-dimer PT 12.7 Seconds (9.4-12.1) H 03/03/17 17:43 - Impressions Impressions Guidance Needle Placement Ultrasound 03/04/17 00:00 IMPRESSION: Successful percutaneous nephrostomy tube placement. Attempts to place an internalized ureteral stent were made, although, these were unsuccessful as the distal right ureter is occluded. The nephrostomy tube will likely be necessary for long-term urinary diversion. Routine exchange at 3 months is recommended, or sooner if necessary. D/ / Real Fragoso MD / Real Fragoso MD Interpreting Provider: Real Fragoso MD Nephrostomy 03/04/17 12:37 IMPRESSION: Successful percutaneous nephrostomy tube placement. Attempts to place an internalized ureteral stent were made, although, these were unsuccessful as the distal right ureter is occluded. The nephrostomy tube will likely be necessary for long-term urinary diversion. Routine exchange at 3 months is recommended, or sooner if necessary. D/ / Real Fragoso MD / Real Fragoso MD Interpreting Provider: Real Fragoso MD Consult Discharge Plan - Plan Referrals: Keenan Poe DO [Primary Care Provider] -
--- NOTE | 2017-03-05 15:27 | Operative Note ---
Date of procedure: 03/05/17 Pre-op diagnosis: Bladder cancer Post-op diagnosis: same Procedure: Transurethral resection of bladder tumor, medium Implants: [address] Complications: none. Anesthesia: TRISTAA Surgeon: Real Luna Estimated blood loss (cc): 5 Specimen: bladder tumor Condition: stable Disposition: PACU Procedure in Detail: Indications: Ms. Mcginnis is an 81-year-old woman who has a history of hematuria and right ureteral obstruction. She had a CT scan which showed a large mass within the bladder. Her right ureter was obstructed. She elected to undergo a transurethral resection of bladder tumor. She was informed of the risks of the procedure including but not limited to bleeding, infection, injury to other structures, need for further procedures, and the risk of anesthesia. She is willing to proceed. She has significant vascular disease and is currently on aspirin and Plavix. The Plavix was not able to be held. She is aware of her increased risk of bleeding. Procedure: After informed consent was obtained Ms. Mcginnis was brought back to the operating room and placed in the supine position. A timeout was performed. General anesthesia was then administered and an LMA was placed. She was then placed in the lithotomy position. Her genitalia were prepped and draped in the usual sterile fashion. The resector sheath was inserted using the visual obturator. There was papillary change to the urethra. Once in the bladder the visual obturator was removed and I inserted the resecting element. The tumor was identified. The entire right wall the bladder was covered and bladder cancer. It extended across the trigone. I was not able to identify the right or the left ureter. The dome of the bladder and the posterior wall were unaffected. I resected a small portion of the tumor, approximately 2.5 cm. The tumor chips were irrigated out. Hemostasis was achieved with the cautery. There is still large amount of tumor left over. She was anemic and given her age and functional status I felt it reasonable to just obtain a biopsy for staging purposes. A 22 [place] three-way catheter was placed and 30 mL was instilled into the balloon. The catheter was left to drainage on slow continuous bladder irrigation. The patient was then awakened from general anesthesia and brought to the recovery room in good condition. All sponge, needle and instrument counts were correct.
--- NOTE | 2017-03-05 15:45 | Anesthesia Evaluation Post Op ---
Date of Encounter: 03/05/17 Time of Encounter: 15:45 - Vital Signs Vital Signs: Last Vital Signs Temp 97.5 F L 03/05/17 15:25 Pulse 81 03/05/17 15:35 Resp 18 03/05/17 15:35 BP 102/55 03/05/17 15:35 Pulse Ox 94 03/05/17 15:35 - Lungs Lungs: Clear Ascult./Percussion - Airway Airway: Non-obstructed - Cardiovascular Regular Rate - Mental Status Mental Status: Alert & Oriented, Answers Appropriately - Pain Pain Scale: 2 - Nausea Vomiting Nausea Vomiting: Not Present - Hydration Hydration: NPO - Discharge PostOp Status: Transfer Patient to floor
[2017-03-05] MEDS ORDERED: Acetaminophen 325 MG TABLET PO PRN (15:56)
[2017-03-06 06:47] LABS: Basophils % 0.1 %; Hematocrit 23.6 % (35.3-44.9); Hemoglobin 7.4 g/dL (11.5-15.4); Immature Granulocytes % 1.4 % (0-4); Lymphocytes # 0.9 K/mcL (0.6-4.6); Lymphocytes % 4.8 %; Mean Corpuscular HGB Conc 31.4 g/dL (31.6-35.5); Mean Corpuscular Hemoglobin 25.9 pg (28.0-33.3); Mean Corpuscular Volume 82.5 fL (83.0-100.0); Mean Platelet Volume 9.6 fL (9.4-12.4); Monocytes # 0.2 K/mcL (0.0-1.3); Monocytes % 1.1 %; Platelet Count 371 K/mcL (140-400); Red Blood Count 2.86 M/mcL (3.82-4.97); Red Cell Distribution Width 16.6 % (11.5-14.5); Segmented Neutrophils % 92.6 %
[2017-03-06 07:07] LABS: Potassium 4.8 mEq/L (3.5-4.5)
[2017-03-06] MEDS: Multivit/Ca/Min/Fe/FA 1 TAB TABLET PO SCH (07:45)
[2017-03-06] MEDS: Ringers Solution, Lactated 1,000 ML IVC SCH ×2 (08:34→22:46)
--- NOTE | 2017-03-06 12:42 | Urology Progress Note ---
Date of Encounter: 03/06/17 Time of Encounter: 12:41 - Assessment and Plan (1) Bladder mass Current Visit: Yes Status: Acute Assessment and plan: She has a large bladder mass concerning for locally advanced bladder cancer. Her urine is clearing. I will turn off the CBI today. She should remain in the hospital overnight with the indwelling catheter and if her urine remains clear, we can remove the catheter tomorrow morning. I appreciate internal medicine support. We'll follow. (2) Hydroureteronephrosis Current Visit: Yes Status: Acute Progress Note Narrative: Postoperative #1 status post TURBT. She is doing well. Her urine is clear. Objective Initial Vital Signs Temp Pulse Resp BP Pulse Ox 98.3 F 95 18 104/68 96 03/03/17 12:33 03/03/17 12:33 03/03/17 12:33 03/03/17 12:33 03/03/17 12:33 - General physical appearance Present: well developed, well nourished, no distress - Respiratory Present: normal respiratory effort - Abdomen Present: soft - Genitourinary Urine Appearance: Present: Clear - Labs 03/06/17 06:16 03/06/17 06:16 Diabetes panel 03/06/17 Range/Units 06:16 Sodium 136 (136-145) mEq/L Potassium 4.8 H D (3.5-4.5) mEq/L Chloride 109 (98-109) mEq/L Carbon Dioxide 18 L (19-29) mEq/L BUN 24 H (7-20) mg/dL Creatinine 1.52 H (0.57-1.11) mg/dL Glucose 125 H (70-99) mg/dL Calcium 8.0 L (8.6-10.8) mg/dL Calcium panel 03/06/17 Range/Units 06:16 Calcium 8.0 L (8.6-10.8) mg/dL Pituitary panel 03/06/17 Range/Units 06:16 Sodium 136 (136-145) mEq/L Potassium 4.8 H D (3.5-4.5) mEq/L Chloride 109 (98-109) mEq/L Carbon Dioxide 18 L (19-29) mEq/L BUN 24 H (7-20) mg/dL Creatinine 1.52 H (0.57-1.11) mg/dL Glucose 125 H (70-99) mg/dL Calcium 8.0 L (8.6-10.8) mg/dL Adrenal panel 03/06/17 Range/Units 06:16 Sodium 136 (136-145) mEq/L Potassium 4.8 H D (3.5-4.5) mEq/L Chloride 109 (98-109) mEq/L Carbon Dioxide 18 L (19-29) mEq/L BUN 24 H (7-20) mg/dL Creatinine 1.52 H (0.57-1.11) mg/dL Glucose 125 H (70-99) mg/dL Calcium 8.0 L (8.6-10.8) mg/dL - VTE Documentation of Mechanical Device: Graduated compression elastic hosiery Consult Discharge Plan - Plan Referrals: Keenan Poe DO [Primary Care Provider] -
--- NOTE | 2017-03-06 13:15 | Internal Med Progress Note ---
Date of Encounter: 03/06/17 Time of Encounter: 10:00 - Assessment and plan (1) UTI (urinary tract infection) Current Visit: Yes Status: Acute Assessment and plan: We will continue Rocephin IV daily. Urine culture showed Escherichia coli sensitive to Rocephin Qualifiers: Urinary tract infection type: acute cystitis Hematuria presence: with hematuria Qualified Code(s): N30.01 - Acute cystitis with hematuria (2) Hypertension Current Visit: Yes Status: Acute Assessment and plan: BP is not high. Home medications amlodipine is on hold Qualifiers: Hypertension type: essential hypertension Qualified Code(s): I10 - Essential (primary) hypertension (3) Acute kidney injury Current Visit: Yes Status: Acute Assessment and plan: Probably due to obstruction caused by bladder mass or dehydration Continue low rate IV fluid, switch to LR as lab shows high chloride and mild low bicarbonate. Nephrostomy done. Cont closely follow renal function. (4) DVT prophylaxis Current Visit: Yes Status: Acute Assessment and plan: EPCD. Start heparin sc today (5) Hypothyroidism Current Visit: Yes Status: Acute Assessment and plan: Continue home medications Qualifiers: Hypothyroidism type: acquired Qualified Code(s): E03.9 - Hypothyroidism, unspecified (6) Bladder mass Current Visit: Yes Status: Acute Assessment and plan: Urology is on case. Had tumor biopsy, waiting for pathology. (7) Hydroureteronephrosis Current Visit: Yes Status: Acute Assessment and plan: Had nephrostomy tube placed (8) Generalized weakness Current Visit: Yes Status: Acute Assessment and plan: Patient has generalized weakness, anemia, body with loss. Patient was found bladder tumor, most likely malignancy. Will continue supportive treatment. Dietitian consult for nutrition supplement. PTOT evaluation recommend home discharge (9) Weight loss, non-intentional Current Visit: Yes Status: Acute Assessment and plan: Most likely due to bladder mass. (10) Severe protein-calorie malnutrition Current Visit: Yes Status: Acute Assessment and plan: May due to bladder tumor, nutrition consult for diet supplement. (11) Leukocytosis Current Visit: Yes Status: Acute Assessment and plan: Patient has neutrophil dominated leukocytosis, wbc 19k, slowly trended down on antibiotic. Without fever or other signs of sepsis. It is difficult explained only by UTI. Also likely reactive response of bladder tumor. Will follow-up CBC Qualifiers: Leukocytosis type: leukemoid reaction Qualified Code(s): D72.823 - Leukemoid reaction - Time Spent With Patient 25 - 35 minutes - Subjective Interval history: Patient is a 81-year-old female with history of hypertension and hypothyroidism admitted for weakness and bladder mass with right-sided hydronephrosis. Patient was seen and examined today. Still feels weak but better. Had nephrostomy and bladder mass biopsy done. No fever, WBC is still high but trends down. Urine culture shows Escherichia coli sensitive to Rocephin. Continue Rocephin for UTI. - Constitutional Vitals: Temp Pulse Resp BP Pulse Ox 98.1 F 83 18 104/65 94 03/06/17 11:21 03/06/17 11:21 03/06/17 11:21 03/06/17 11:21 03/06/17 11:21 General appearance: Present: cachectic, A&O X 3, no acute distress, answers questions appropriately - Head Head exam: Present: atraumatic, normocephalic - Eye Eye exam: Present: PERRL, conjuntiva pink, sclera anicteric Pupils: Present: PERRL - Neck Neck exam general surgery: Present: supple, trachea midline. Absent: lymphadenopathy - Respiratory Respiratory exam: Present: CTAB. Absent: accessory muscle use, rales, rhonchi, wheezes - Cardiovascular Cardiovascular exam: Present: RRR, +S1, +S2. Absent: diastolic murmur, gallop, rubs, systolic murmur - GI/Abdominal GI/Abdominal exam: Present: normal bowel sounds, soft, no peritoneal signs. Absent: distended, tenderness - Extremities Exam Extremities exam: Present: warm, radial pulses palpable and symmetrical. Absent : calf tenderness, cyanotic, pedal edema - Neurological Exam Neurological exam: Present: CN II-XII intact, oriented X3, no focal deficits. Absent: pronater drift, facial droop, speech deficit - Skin Skin exam: Present: dry, intact Internal Medicine: Result - Labs CBC & Chem 7: 03/06/17 06:16 03/06/17 06:16 Labs: Short CBC 03/06/17 Range/Units 06:16 WBC 19.4 H (4.3-11.1) K/mcL Hgb 7.4 L (11.5-15.4) g/dL Hct 23.6 L (35.3-44.9) % Plt Count 371 (140-400) K/mcL Neutrophils # 18.0 H (1.6-8.9) K/mcL BMP 03/06/17 06:16 Sodium 136 Potassium 4.8 H D Chloride 109 Carbon Dioxide 18 L BUN 24 H Creatinine 1.52 H Glucose 125 H Calcium 8.0 L - ABG Interpretation ABG results: PT/INR, D-dimer PT 12.7 Seconds (9.4-12.1) H 03/03/17 17:43 - VTE Documentation of Mechanical Device: Graduated compression elastic hosiery Consult Discharge Plan - Plan Referrals: Keenan Poe DO [Primary Care Provider] -
[2017-03-06] MEDS: *HR* Heparin 5,000 UNIT/ML VIAL SQ SCH (17:20)
[2017-03-07] MEDS: *HR* Heparin 5,000 UNIT/ML VIAL SQ SCH ×2 (05:27→17:40)
[2017-03-07] MEDS: Multivit/Ca/Min/Fe/FA 1 TAB TABLET PO SCH (07:13)
[2017-03-07 08:06] LABS: Basophils % 0.1 %; Eosinophils # 0.1 K/mcL (0.0-0.6); Eosinophils % 0.2 %; Hematocrit 24.9 % (35.3-44.9); Hemoglobin 7.6 g/dL (11.5-15.4); Immature Granulocytes % 0.9 % (0-4); Lymphocytes # 1.7 K/mcL (0.6-4.6); Lymphocytes % 6.9 %; Mean Corpuscular HGB Conc 30.5 g/dL (31.6-35.5); Mean Corpuscular Hemoglobin 25.7 pg (28.0-33.3); Mean Corpuscular Volume 84.1 fL (83.0-100.0); Mean Platelet Volume 9.8 fL (9.4-12.4); Monocytes # 1.3 K/mcL (0.0-1.3); Monocytes % 5.2 %; Neutrophils # 20.9 K/mcL (1.6-8.9); Platelet Count 311 K/mcL (140-400); Red Blood Count 2.96 M/mcL (3.82-4.97); Red Cell Distribution Width 17.2 % (11.5-14.5); Segmented Neutrophils % 86.7 %
[2017-03-07 08:28] LABS: Calcium 8.2 mg/dL (8.6-10.8); Potassium 3.8 mEq/L (3.5-4.5)
[2017-03-07] MEDS: Ringers Solution, Lactated 1,000 ML IVC SCH (11:56)
--- NOTE | 2017-03-07 12:14 | Urology Progress Note ---
Date of Encounter: 03/07/17 Time of Encounter: 12:12 - Assessment and Plan (1) Bladder mass Current Visit: Yes Status: Acute Assessment and plan: 81-year-old woman with what is likely locally advanced bladder cancer. Pathology is pending from the TURBT. She is doing well. Catheter has been removed. We'll follow along. (2) Hydroureteronephrosis Current Visit: Yes Status: Acute Progress Note Narrative: Postoperative day #2 status post TURBT. She is doing well. Her catheter was removed. She is tolerating diet. Objective Initial Vital Signs Temp Pulse Resp BP Pulse Ox 98.3 F 95 18 104/68 96 03/03/17 12:33 03/03/17 12:33 03/03/17 12:33 03/03/17 12:33 03/03/17 12:33 - General physical appearance Present: well developed, well nourished, no distress - Respiratory Present: normal respiratory effort - Abdomen Present: soft - Labs 03/07/17 07:13 03/07/17 07:13 Diabetes panel 03/07/17 Range/Units 07:13 Sodium 138 (136-145) mEq/L Potassium 3.8 D (3.5-4.5) mEq/L Chloride 109 (98-109) mEq/L Carbon Dioxide 22 (19-29) mEq/L BUN 24 H (7-20) mg/dL Creatinine 1.66 H (0.57-1.11) mg/dL Glucose 86 (70-99) mg/dL Calcium 8.2 L (8.6-10.8) mg/dL Calcium panel 03/07/17 Range/Units 07:13 Calcium 8.2 L (8.6-10.8) mg/dL Pituitary panel 03/07/17 Range/Units 07:13 Sodium 138 (136-145) mEq/L Potassium 3.8 D (3.5-4.5) mEq/L Chloride 109 (98-109) mEq/L Carbon Dioxide 22 (19-29) mEq/L BUN 24 H (7-20) mg/dL Creatinine 1.66 H (0.57-1.11) mg/dL Glucose 86 (70-99) mg/dL Calcium 8.2 L (8.6-10.8) mg/dL Adrenal panel 03/07/17 Range/Units 07:13 Sodium 138 (136-145) mEq/L Potassium 3.8 D (3.5-4.5) mEq/L Chloride 109 (98-109) mEq/L Carbon Dioxide 22 (19-29) mEq/L BUN 24 H (7-20) mg/dL Creatinine 1.66 H (0.57-1.11) mg/dL Glucose 86 (70-99) mg/dL Calcium 8.2 L (8.6-10.8) mg/dL - VTE Documentation of Mechanical Device: Intermittent pneumatic compression device Consult Discharge Plan - Plan Referrals: Keenan Poe DO [Primary Care Provider] -
--- NOTE | 2017-03-07 15:29 | Internal Med Progress Note ---
Date of Encounter: 03/07/17 Time of Encounter: 10:00 - Assessment and plan (1) UTI (urinary tract infection) Current Visit: Yes Status: Acute Assessment and plan: We will continue Rocephin IV daily. Urine culture showed Escherichia coli sensitive to Rocephin Qualifiers: Urinary tract infection type: acute cystitis Hematuria presence: with hematuria Qualified Code(s): N30.01 - Acute cystitis with hematuria (2) Hypertension Current Visit: Yes Status: Acute Assessment and plan: BP is not high. Home medications amlodipine is on hold Qualifiers: Hypertension type: essential hypertension Qualified Code(s): I10 - Essential (primary) hypertension (3) Acute kidney injury Current Visit: Yes Status: Acute Assessment and plan: Nephrostomy done. Patient's renal function not improve significantly despite continuous IV fluid (also not significantly worse). Review her old chart, her renal function started getting worse (Cr 1.31) on 01/08/17 (the one before this was 1.10 on 06/30/16). Probably it is at her new baseline since December (or even earlier). Will continue to monitor renal function (4) DVT prophylaxis Current Visit: Yes Status: Acute Assessment and plan: EPCD. Start heparin sc today (5) Hypothyroidism Current Visit: Yes Status: Acute Assessment and plan: Continue home medications Qualifiers: Hypothyroidism type: acquired Qualified Code(s): E03.9 - Hypothyroidism, unspecified (6) Bladder mass Current Visit: Yes Status: Acute Assessment and plan: Urology is on case. Had tumor biopsy, waiting for pathology. (7) Hydroureteronephrosis Current Visit: Yes Status: Acute Assessment and plan: Had nephrostomy tube placed (8) Generalized weakness Current Visit: Yes Status: Acute Assessment and plan: Patient has generalized weakness, anemia, body with loss. Patient was found bladder tumor, most likely malignancy. Will continue supportive treatment. Dietitian consult for nutrition supplement. PTOT evaluation recommend home discharge (9) Weight loss, non-intentional Current Visit: Yes Status: Acute Assessment and plan: Most likely due to bladder mass. (10) Severe protein-calorie malnutrition Current Visit: Yes Status: Acute Assessment and plan: May due to bladder tumor, nutrition consult for diet supplement. (11) Leukocytosis Current Visit: Yes Status: Acute Assessment and plan: Patient has neutrophil dominated leukocytosis, wbc 24k today. Without fever or other signs of sepsis. It is difficult explained only by UTI. Also likely reactive response of bladder tumor. Qualifiers: Leukocytosis type: leukemoid reaction Qualified Code(s): D72.823 - Leukemoid reaction - Time Spent With Patient 25 - 35 minutes - Subjective Interval history: Patient is a 81-year-old female with history of hypertension and hypothyroidism admitted for weakness and bladder mass with right-sided hydronephrosis. Patient was seen and examined today. Still feels weak but better. Had nephrostomy and bladder mass biopsy done. No fever, WBC is still high although on abx. Patient has stable vitals, no signs of sepsis. Urine culture shows Escherichia coli sensitive to Rocephin. - Constitutional Vitals: Temp Pulse Resp BP Pulse Ox 98.5 F 88 14 110/69 96 03/07/17 14:36 03/07/17 14:36 03/07/17 14:36 03/07/17 14:36 03/07/17 14:36 General appearance: Present: cachectic, A&O X 3, no acute distress, answers questions appropriately - Head Head exam: Present: atraumatic, normocephalic - Eye Eye exam: Present: PERRL, conjuntiva pink, sclera anicteric Pupils: Present: PERRL - Neck Neck exam general surgery: Present: supple, trachea midline. Absent: lymphadenopathy - Respiratory Respiratory exam: Present: CTAB. Absent: accessory muscle use, rales, rhonchi, wheezes - Cardiovascular Cardiovascular exam: Present: RRR, +S1, +S2. Absent: diastolic murmur, gallop, rubs, systolic murmur - GI/Abdominal GI/Abdominal exam: Present: normal bowel sounds, soft, no peritoneal signs. Absent: distended, tenderness Additional comments: Nephrostomy tube in place with clear urine in bag - Extremities Exam Extremities exam: Present: warm, radial pulses palpable and symmetrical. Absent : calf tenderness, cyanotic, pedal edema - Neurological Exam Neurological exam: Present: CN II-XII intact, oriented X3, no focal deficits. Absent: pronater drift, facial droop, speech deficit - Skin Skin exam: Present: dry, intact Internal Medicine: Result - Labs CBC & Chem 7: 03/07/17 07:13 03/07/17 07:13 Labs: Short CBC 03/07/17 Range/Units 07:13 WBC 24.1 H (4.3-11.1) K/mcL Hgb 7.6 L (11.5-15.4) g/dL Hct 24.9 L (35.3-44.9) % Plt Count 311 (140-400) K/mcL Neutrophils # 20.9 H (1.6-8.9) K/mcL BMP 03/07/17 07:13 Sodium 138 Potassium 3.8 D Chloride 109 Carbon Dioxide 22 BUN 24 H Creatinine 1.66 H Glucose 86 Calcium 8.2 L - ABG Interpretation ABG results: PT/INR, D-dimer PT 12.7 Seconds (9.4-12.1) H 03/03/17 17:43 - VTE Documentation of Mechanical Device: Intermittent pneumatic compression device Consult Discharge Plan - Plan Referrals: Keenan Poe DO [Primary Care Provider] -
[2017-03-08] MEDS: Ringers Solution, Lactated 1,000 ML IVC SCH ×2 (01:15→14:26)
[2017-03-08 04:26] LABS: Basophils % 0.2 %; Eosinophils # 0.2 K/mcL (0.0-0.6); Eosinophils % 0.9 %; Hematocrit 23.5 % (35.3-44.9); Hemoglobin 7.1 g/dL (11.5-15.4); Immature Granulocytes % 1.9 % (0-4); Lymphocytes # 2.1 K/mcL (0.6-4.6); Lymphocytes % 9.8 %; Mean Corpuscular HGB Conc 30.2 g/dL (31.6-35.5); Mean Corpuscular Hemoglobin 24.6 pg (28.0-33.3); Mean Corpuscular Volume 81.3 fL (83.0-100.0); Mean Platelet Volume 9.5 fL (9.4-12.4); Monocytes # 0.8 K/mcL (0.0-1.3); Monocytes % 3.8 %; Neutrophils # 18.2 K/mcL (1.6-8.9); Platelet Count 243 K/mcL (140-400); Red Blood Count 2.89 M/mcL (3.82-4.97); Red Cell Distribution Width 17.3 % (11.5-14.5); Segmented Neutrophils % 83.4 %
[2017-03-08 04:43] LABS: Calcium 8.2 mg/dL (8.6-10.8); Potassium 3.7 mEq/L (3.5-4.5)
[2017-03-08] MEDS: *HR* Heparin 5,000 UNIT/ML VIAL SQ SCH ×2 (06:06→21:18)
--- NOTE | 2017-03-08 07:25 | Urology Progress Note ---
Date of Encounter: 03/08/17 Time of Encounter: 07:23 - Assessment and Plan (1) Bladder mass Current Visit: Yes Status: Acute Assessment and plan: 81-year-old woman with concerning for bladder cancer. Pathology is pending. Patient and family are not interested in aggressive treatment. She does have an elevated white blood cell count, but her urinary tract infection is being well treated on a culture appropriate antibiotic. We will continue to follow along. No further urologic intervention is necessary at this time. (2) Hydroureteronephrosis Current Visit: Yes Status: Acute Progress Note Narrative: 81-year-old woman with locally advanced bladder cancer status post TURBT, postoperative day #3. She fell out of bed last night. Her urine has been clear. She has a right nephrostomy tube with clear urine. She denies any injury from a fall. Objective Initial Vital Signs Temp Pulse Resp BP Pulse Ox 98.3 F 95 18 104/68 96 03/03/17 12:33 03/03/17 12:33 03/03/17 12:33 03/03/17 12:33 03/03/17 12:33 - General physical appearance Present: well developed, well nourished, no distress - Respiratory Present: normal respiratory effort - Abdomen Present: soft (Left tube in place with clear urine.) - Labs 03/08/17 04:12 03/08/17 04:12 Diabetes panel 03/07/17 03/08/17 Range/Units 07:13 04:12 Sodium 138 137 (136-145) mEq/L Potassium 3.8 D 3.7 (3.5-4.5) mEq/L Chloride 109 106 (98-109) mEq/L Carbon Dioxide 22 22 (19-29) mEq/L BUN 24 H 23 H (7-20) mg/dL Creatinine 1.66 H 1.44 H (0.57-1.11) mg/dL Glucose 86 79 (70-99) mg/dL Calcium 8.2 L 8.2 L (8.6-10.8) mg/dL Calcium panel 03/07/17 03/08/17 Range/Units 07:13 04:12 Calcium 8.2 L 8.2 L (8.6-10.8) mg/dL Pituitary panel 03/07/17 03/08/17 Range/Units 07:13 04:12 Sodium 138 137 (136-145) mEq/L Potassium 3.8 D 3.7 (3.5-4.5) mEq/L Chloride 109 106 (98-109) mEq/L Carbon Dioxide 22 22 (19-29) mEq/L BUN 24 H 23 H (7-20) mg/dL Creatinine 1.66 H 1.44 H (0.57-1.11) mg/dL Glucose 86 79 (70-99) mg/dL Calcium 8.2 L 8.2 L (8.6-10.8) mg/dL Adrenal panel 03/07/17 03/08/17 Range/Units 07:13 04:12 Sodium 138 137 (136-145) mEq/L Potassium 3.8 D 3.7 (3.5-4.5) mEq/L Chloride 109 106 (98-109) mEq/L Carbon Dioxide 22 22 (19-29) mEq/L BUN 24 H 23 H (7-20) mg/dL Creatinine 1.66 H 1.44 H (0.57-1.11) mg/dL Glucose 86 79 (70-99) mg/dL Calcium 8.2 L 8.2 L (8.6-10.8) mg/dL - VTE Documentation of Mechanical Device: Intermittent pneumatic compression device Consult Discharge Plan - Plan Referrals: Keenan Poe DO [Primary Care Provider] -
[2017-03-08] MEDS: Multivit/Ca/Min/Fe/FA 1 TAB TABLET PO SCH (09:03)
--- NOTE | 2017-03-08 14:58 | Internal Med Progress Note ---
Date of Encounter: 03/08/17 Time of Encounter: 10:00 - Assessment and plan (1) UTI (urinary tract infection) Current Visit: Yes Status: Acute Assessment and plan: We will continue Rocephin IV daily. Urine culture showed Escherichia coli sensitive to Rocephin. May switch to by mouth antibiotics upon discharge Qualifiers: Urinary tract infection type: acute cystitis Hematuria presence: with hematuria Qualified Code(s): N30.01 - Acute cystitis with hematuria (2) Hypertension Current Visit: Yes Status: Acute Assessment and plan: BP is not high. Home medications amlodipine is on hold Qualifiers: Hypertension type: essential hypertension Qualified Code(s): I10 - Essential (primary) hypertension (3) Acute kidney injury Current Visit: Yes Status: Acute Assessment and plan: Nephrostomy done. Patient's renal function not improve significantly despite continuous IV fluid (also not significantly worse). Review her old chart, her renal function started getting worse (Cr 1.31) on 01/08/17 (the one before this was 1.10 on 06/30/16). Probably it is at her new baseline since December (or even earlier). (4) DVT prophylaxis Current Visit: Yes Status: Acute Assessment and plan: EPCD. Start heparin sc (5) Hypothyroidism Current Visit: Yes Status: Acute Assessment and plan: Continue home medications Qualifiers: Hypothyroidism type: acquired Qualified Code(s): E03.9 - Hypothyroidism, unspecified (6) Bladder mass Current Visit: Yes Status: Acute Assessment and plan: Urology is on case. Had tumor biopsy, waiting for pathology. (7) Hydroureteronephrosis Current Visit: Yes Status: Acute Assessment and plan: Had nephrostomy tube placed (8) Generalized weakness Current Visit: Yes Status: Acute Assessment and plan: Patient has generalized weakness, anemia, body with loss. Patient was found bladder tumor, most likely malignancy. Will continue supportive treatment. Dietitian consult for nutrition supplement. PTOT re-evaluation because fall during last night. (9) Weight loss, non-intentional Current Visit: Yes Status: Acute Assessment and plan: Most likely due to bladder mass. (10) Severe protein-calorie malnutrition Current Visit: Yes Status: Acute Assessment and plan: May due to bladder tumor, nutrition consult for diet supplement. (11) Leukocytosis Current Visit: Yes Status: Acute Assessment and plan: Patient has neutrophil dominated leukocytosis, wbc keeps at arround 20k. Without fever or other signs of sepsis. It is difficult explained only by UTI. Probably reactive response of bladder tumor. D/W family, will not persue any further test considering pt's large bladder tumor. Qualifiers: Leukocytosis type: leukemoid reaction Qualified Code(s): D72.823 - Leukemoid reaction (12) Anemia Current Visit: Yes Status: Acute Assessment and plan: Anemia workup shows iron deficiency. Most likely due to chronic blood loss from the tumor. Started iron supplement. Will transfuse 1 unit of PRBC today. Qualifiers: Anemia type: iron deficiency Iron deficiency anemia type: chronic blood loss Qualified Code(s): D50.0 - Iron deficiency anemia secondary to blood loss (chronic) - Subjective Interval history: Patient is a 81-year-old female with history of hypertension and hypothyroidism admitted for weakness and bladder mass with right-sided hydronephrosis. Patient was seen and examined today. Still feels weak but better. Had nephrostomy and bladder mass biopsy done. No fever, WBC is still high although on abx. Patient has stable vitals, no signs of sepsis. Urine culture shows Escherichia coli sensitive to Rocephin. Pt's Hgb at lower side, will give one unit of PRBC. Pt fell last night, no signs of injury, CT head done during night , negative. Will re-consult PT/OT for evaluation. I have discussed Ms. Mcginnis's condition with pt and her two daughters, Ms Jess Castañeda and Ms Joan Acosta. They are aware that pt may has bladder malignancy and decided not going for aggressive treatment. I told them pt's WBC is high although abx treatment per sensitivity, it probably due to reaction to tumor. They shows understanding and don't want any further workup. I also told them the Cr is high which probably is her new baseline. They shows understanding and also don't consider further test. They agree to d/c pt to ECF if PT/OT recommended so. They agree for transfusion of PRBC today. - Constitutional Vitals: Temp Pulse Resp BP Pulse Ox 98.7 F 95 18 103/64 94 03/08/17 10:39 03/08/17 10:39 03/08/17 10:39 03/08/17 10:39 03/08/17 10:39 General appearance: Present: cachectic, A&O X 3, no acute distress, answers questions appropriately - Head Head exam: Present: atraumatic, normocephalic - Eye Eye exam: Present: PERRL, conjuntiva pink, sclera anicteric Pupils: Present: PERRL - Neck Neck exam general surgery: Present: supple, trachea midline. Absent: lymphadenopathy - Respiratory Respiratory exam: Present: CTAB. Absent: accessory muscle use, rales, rhonchi, wheezes - Cardiovascular Cardiovascular exam: Present: RRR, +S1, +S2. Absent: diastolic murmur, gallop, rubs, systolic murmur - GI/Abdominal GI/Abdominal exam: Present: normal bowel sounds, soft, no peritoneal signs. Absent: distended, tenderness Additional comments: Nephrostomy tube in place. - Extremities Exam Extremities exam: Present: warm, radial pulses palpable and symmetrical. Absent : calf tenderness, cyanotic, pedal edema - Neurological Exam Neurological exam: Present: CN II-XII intact, oriented X3, no focal deficits. Absent: pronater drift, facial droop, speech deficit - Skin Skin exam: Present: dry, intact Internal Medicine: Result - Labs CBC & Chem 7: 03/08/17 04:12 03/08/17 04:12 Labs: Short CBC 03/08/17 Range/Units 04:12 WBC 21.8 H (4.3-11.1) K/mcL Hgb 7.1 L (11.5-15.4) g/dL Hct 23.5 L (35.3-44.9) % Plt Count 243 (140-400) K/mcL Neutrophils # 18.2 H (1.6-8.9) K/mcL BMP 03/08/17 04:12 Sodium 137 Potassium 3.7 Chloride 106 Carbon Dioxide 22 BUN 23 H Creatinine 1.44 H Glucose 79 Calcium 8.2 L - ABG Interpretation ABG results: PT/INR, D-dimer PT 12.7 Seconds (9.4-12.1) H 03/03/17 17:43 - Impressions Impressions Head CT 03/08/17 03:45 IMPRESSION: No acute intracranial abnormality. D/ / Dennis Mejias MD / Dennis Mejias MD Interpreting Provider: Dennis Mejias MD - VTE Documentation of Mechanical Device: Intermittent pneumatic compression device Consult Discharge Plan - Plan Referrals: Keenan Poe DO [Primary Care Provider] -
[2017-03-08] MEDS ORDERED: 0.9 % Sodium Chloride 250 ML ONE (15:22)
[2017-03-08] MEDS: 0.9 % Sodium Chloride 1,000 ML IVC SCH ×2 (20:03)
[2017-03-09 03:24] LABS: Basophils # 0.1 K/mcL (0.0-0.2); Basophils % 0.3 %; Eosinophils # 0.2 K/mcL (0.0-0.6); Eosinophils % 0.9 %; Hematocrit 30.6 % (35.3-44.9); Immature Granulocytes % 1.3 % (0-4); Lymphocytes # 2.1 K/mcL (0.6-4.6); Mean Corpuscular HGB Conc 32.4 g/dL (31.6-35.5); Mean Corpuscular Hemoglobin 26.8 pg (28.0-33.3); Mean Corpuscular Volume 82.9 fL (83.0-100.0); Mean Platelet Volume 9.1 fL (9.4-12.4); Monocytes # 1.2 K/mcL (0.0-1.3); Monocytes % 5.1 %; Neutrophils # 19.2 K/mcL (1.6-8.9); Platelet Count 176 K/mcL (140-400); Red Blood Count 3.69 M/mcL (3.82-4.97); Red Cell Distribution Width 17.1 % (11.5-14.5); Segmented Neutrophils % 83.4 %
[2017-03-09 03:28] LABS: Hemoglobin 9.9 g/dL (11.5-15.4)
[2017-03-09 04:03] LABS: Potassium 3.8 mEq/L (3.5-4.5)
[2017-03-09] MEDS: *HR* Heparin 5,000 UNIT/ML VIAL SQ SCH ×2 (05:36→18:11)
[2017-03-09] MEDS: Ringers Solution, Lactated 1,000 ML IVC SCH (05:36)
--- NOTE | 2017-03-09 07:56 | Urology Progress Note ---
Date of Encounter: 03/09/17 Time of Encounter: 07:54 - Assessment and Plan (1) Bladder mass Current Visit: Yes Status: Acute Assessment and plan: She is status post TURBT. Pathology is pending. Patient desires observation of her cancer. (2) Hydroureteronephrosis Current Visit: Yes Status: Acute Assessment and plan: We will continue nephrostomy tube. This will need to be changed on 3 months. Disposition per primary team. Progress Note Narrative: Doing well today. Pathology is pending. Urine is clear from nephrostomy tube. She is voiding well. Objective Initial Vital Signs Temp Pulse Resp BP Pulse Ox 98.3 F 95 18 104/68 96 03/03/17 12:33 03/03/17 12:33 03/03/17 12:33 03/03/17 12:33 03/03/17 12:33 - General physical appearance Present: well developed, well nourished, no distress - Respiratory Present: normal respiratory effort - Abdomen Present: soft - Genitourinary Present: other (Urine is clear from nephrostomy tube.) - Labs 03/09/17 03:09 03/09/17 03:09 Diabetes panel 03/09/17 Range/Units 03:09 Sodium 135 L (136-145) mEq/L Potassium 3.8 (3.5-4.5) mEq/L Chloride 107 (98-109) mEq/L Carbon Dioxide 18 L (19-29) mEq/L BUN 19 (7-20) mg/dL Creatinine 1.14 H (0.57-1.11) mg/dL Glucose 80 (70-99) mg/dL Calcium 8.0 L (8.6-10.8) mg/dL Calcium panel 03/09/17 Range/Units 03:09 Calcium 8.0 L (8.6-10.8) mg/dL Pituitary panel 03/09/17 Range/Units 03:09 Sodium 135 L (136-145) mEq/L Potassium 3.8 (3.5-4.5) mEq/L Chloride 107 (98-109) mEq/L Carbon Dioxide 18 L (19-29) mEq/L BUN 19 (7-20) mg/dL Creatinine 1.14 H (0.57-1.11) mg/dL Glucose 80 (70-99) mg/dL Calcium 8.0 L (8.6-10.8) mg/dL Adrenal panel 03/09/17 Range/Units 03:09 Sodium 135 L (136-145) mEq/L Potassium 3.8 (3.5-4.5) mEq/L Chloride 107 (98-109) mEq/L Carbon Dioxide 18 L (19-29) mEq/L BUN 19 (7-20) mg/dL Creatinine 1.14 H (0.57-1.11) mg/dL Glucose 80 (70-99) mg/dL Calcium 8.0 L (8.6-10.8) mg/dL - VTE Documentation of Mechanical Device: Intermittent pneumatic compression device Consult Discharge Plan - Plan Referrals: Keenan Poe DO [Primary Care Provider] -
[2017-03-09] MEDS: Multivit/Ca/Min/Fe/FA 1 TAB TABLET PO SCH (08:57)
--- NOTE | 2017-03-09 14:39 | Internal Med Progress Note ---
Date of Encounter: 03/09/17 Time of Encounter: 14:38 - Assessment and plan (1) Bladder mass Current Visit: Yes Status: Acute Assessment and plan: Patient presented with abdominal pain. CT abdomen/pelvis shows right-sided fungating bladder mass, associated with right hydroureteronephrosis. Urology on board. Patient underwent a right nephrostomy tube placement and transurethral resection of bladder mass with pending biopsy. Patient and family do not wish for aggressive management. Outpatient urology follow-up is recommended at this time. CODE STATUS is DNR comfort care arrest/DNI. (2) Hydroureteronephrosis Current Visit: Yes Status: Acute Assessment and plan: Secondary to obstructive uropathy from fungating right-sided bladder mass. Urology on board. Status post right nephrostomy tube placement. Plan for removal in 2-3 months as outpatient. (3) Generalized weakness Current Visit: Yes Status: Acute Assessment and plan: Likely secondary to bladder mass, which could be malignant. Physical and occupational therapy evaluation recommended home health services. However, patient's family is extremely concerned that patient may sustain mechanical falls at home due to generalized weakness and she has no help at this time. 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 Will reconsult oncology social work. (4) UTI (urinary tract infection) Current Visit: Yes Status: Acute Assessment and plan: Urine culture grows pansensitive E.coli; continue IV Rocephin. Qualifiers: Urinary tract infection type: acute cystitis Hematuria presence: with hematuria Qualified Code(s): N30.01 - Acute cystitis with hematuria (5) Hypertension Current Visit: Yes Status: Chronic Qualifiers: Hypertension type: essential hypertension Qualified Code(s): I10 - Essential (primary) hypertension (6) Acute kidney injury Current Visit: Yes Status: Chronic Assessment and plan: Patient likely has chronic kidney disease, serum creatinine is around baseline, 1.1 today. (7) Hypothyroidism Current Visit: Yes Status: Chronic Assessment and plan: Continue levothyroxine. Qualifiers: Hypothyroidism type: unspecified Qualified Code(s): E03.9 - Hypothyroidism , unspecified (8) Severe protein-calorie malnutrition Current Visit: Yes Status: Chronic (9) Leukocytosis Current Visit: Yes Status: Acute Assessment and plan: Patient is on appropriate IV antibiotics for UTI. Does not appear to be septic. Leukocytosis is likely reactive to underlying bladder mass/tumor and recent urologic procedures. Qualifiers: Leukocytosis type: leukemoid reaction Qualified Code(s): D72.823 - Leukemoid reaction (10) Anemia Current Visit: Yes Status: Chronic Qualifiers: Anemia type: iron deficiency Iron deficiency anemia type: chronic blood loss Qualified Code(s): D50.0 - Iron deficiency anemia secondary to blood loss (chronic) - Subjective Interval history: Reports feeling well; no nausea, vomiting, abdominal pain. No urinary symptoms, hematuria. - Constitutional Vitals: Temp Pulse Resp BP Pulse Ox 98.2 F 83 18 122/61 93 03/09/17 11:03 03/09/17 11:03 03/09/17 11:03 03/09/17 11:03 03/09/17 11:03 General appearance: Present: A&O X 3, answers questions appropriately - Respiratory Respiratory exam: Present: CTAB. Absent: accessory muscle use, rales, rhonchi, wheezes - Cardiovascular Cardiovascular exam: Present: RRR, +S1, +S2. Absent: diastolic murmur, gallop, rubs, systolic murmur - GI/Abdominal GI/Abdominal exam: Present: normal bowel sounds, soft, no peritoneal signs. Absent: distended, tenderness - Extremities Exam Extremities exam: Present: full ROM, warm, radial pulses palpable and symmetrical. Absent: calf tenderness, cyanotic, pedal edema Internal Medicine: Result - Labs CBC & Chem 7: 03/09/17 03:09 03/09/17 03:09 Labs: Short CBC 03/09/17 Range/Units 03:09 WBC 23.0 H (4.3-11.1) K/mcL Hgb 9.9 L D (11.5-15.4) g/dL Hct 30.6 L (35.3-44.9) % Plt Count 176 (140-400) K/mcL Neutrophils # 19.2 H (1.6-8.9) K/mcL BMP 03/09/17 03:09 Sodium 135 L Potassium 3.8 Chloride 107 Carbon Dioxide 18 L BUN 19 Creatinine 1.14 H Glucose 80 Calcium 8.0 L - ABG Interpretation ABG results: PT/INR, D-dimer PT 12.7 Seconds (9.4-12.1) H 03/03/17 17:43 - VTE Documentation of Mechanical Device: Intermittent pneumatic compression device Consult Discharge Plan - Plan Referrals: Keenan Poe DO [Primary Care Provider] -
[2017-03-10 04:48] LABS: BUN/Creatinine Ratio 20 (6-26); Blood Urea Nitrogen 21 mg/dL (7-20); Calcium 7.7 mg/dL (8.6-10.8); Carbon Dioxide 24 mEq/L (19-29); Chloride 107 mEq/L (98-109); Glucose 92 mg/dL (70-99); Osmolality,Calculated 287 (280-300); Potassium 3.7 mEq/L (3.5-4.5); Sodium 137 mEq/L (136-145); eGFR For African Americans > 60 (> 60); eGFR For Non-African Americans 50 (> 60)
[2017-03-10] MEDS: *HR* Heparin 5,000 UNIT/ML VIAL SQ SCH (06:07)
[2017-03-10 06:50] LABS: Basophils # 0.1 K/mcL (0.0-0.2); Basophils % 0.3 %; Eosinophils # 0.4 K/mcL (0.0-0.6); Eosinophils % 2.1 %; Hematocrit 28.2 % (35.3-44.9); Lymphocytes # 1.9 K/mcL (0.6-4.6); Lymphocytes % 9.7 %; Mean Corpuscular HGB Conc 31.9 g/dL (31.6-35.5); Mean Corpuscular Volume 81.5 fL (83.0-100.0); Mean Platelet Volume 10.7 fL (9.4-12.4); Monocytes % 5.2 %; Neutrophils # 16.2 K/mcL (1.6-8.9); Platelet Count 178 K/mcL (140-400); Red Blood Count 3.46 M/mcL (3.82-4.97); Red Cell Distribution Width 17.6 % (11.5-14.5); Segmented Neutrophils % 81.7 %
[2017-03-10] MEDS: Multivit/Ca/Min/Fe/FA 1 TAB TABLET PO SCH (09:01)
[2017-03-10 14:21] VITALS: BP 133/66
--- NOTE | 2017-03-10 14:27 | Discharge Summary ---
Date of Encounter: 03/10/17 Time of Encounter: 13:00 - Discharge Diagnosis (1) Bladder mass Priority: Primary Status: Acute (2) Hydroureteronephrosis Priority: Primary Status: Acute (3) Generalized weakness Priority: Primary Status: Acute (4) UTI (urinary tract infection) Priority: Primary Status: Acute Qualifiers: Urinary tract infection type: acute cystitis Hematuria presence: with hematuria Qualified Code(s): N30.01 - Acute cystitis with hematuria (5) Hypertension Priority: Secondary Status: Chronic Qualifiers: Hypertension type: essential hypertension Qualified Code(s): I10 - Essential (primary) hypertension (6) Hypothyroidism Priority: Secondary Status: Chronic Qualifiers: Hypothyroidism type: unspecified Qualified Code(s): E03.9 - Hypothyroidism , unspecified (7) Severe protein-calorie malnutrition Priority: Secondary Status: Chronic (8) Leukocytosis Priority: Primary Status: Acute Qualifiers: Leukocytosis type: leukemoid reaction Qualified Code(s): D72.823 - Leukemoid reaction (9) Anemia Priority: Secondary Status: Chronic Qualifiers: Anemia type: iron deficiency Iron deficiency anemia type: unspecified iron deficiency Qualified Code(s): D50.9 - Iron deficiency anemia, unspecified (10) Chronic kidney disease Priority: Secondary Status: Chronic Qualifiers: Chronic kidney disease stage: stage 3 (moderate) Qualified Code(s): N18.3 - Chronic kidney disease, stage 3 (moderate) - Discharge Medications Home Medications: Levothyroxine Sodium 75 mcg PO QAM 03/03/17 [History] Multivit-Min/FA/Lycopen/Lutein [Centrum Silver Tablet] 1 each PO DAILY 03/03/17 [History] amLODIPine [Norvasc] 5 mg PO DAILY 03/03/17 [History] Docusate [Colace] 100 mg PO BID capsule 03/10/17 [Rx] Ferrous Sulfate 325 mg PO DAILY@0800 tablet 03/10/17 [Rx] Allergies/Adverse Reactions: 3 Allergy/AdvReac Type Severity Reaction Status Date / Time Penicillins Allergy Hives Verified 03/03/17 12:30 Procedures/tests Complete & Pending: Procedures Performed prior 72 hours Category Date Time Status CT head/brain wo con [CT] Stat Cat Scan 03/08/17 03:45 Completed Date of admission: 03/03/17 17:17 Primary care physician: Keenan Poe Consults: 03/03/17 17:30 Consult to Interventional Radiology [CONS] Routine Consulting Provider: Radiology Interventional Cols Reason for Consult: Plance right nephrostomy tube - called radiology results line. Time Notified: 17:31 Call Completed: Yes 03/03/17 18:03 Consult to Nutrition [CONS] Routine Comment: Consulting Provider: NUTRITION Reason for Dietary Consult: PO Supplementation 03/08/17 13:22 PT [Consult to Physical Therapy] [CONS] Routine Comment: Evaluate, develop and implement POC Reason for Consult: reevaluate needed do to fall 03/08/17 13:23 OT [Consult to Occupational Therapy] [CONS] Routine Comment: Evaluate, develop and implement POC Reason for Consult: reevaluation needed do to fall Discharging clinician: Shalini Tavarez Anticipated date of discharge: 03/10/17 - Patient Status Disposition: Transfer SNF Condition: Fair Functional capacity at discharge: uses cane/walker Overall status at discharge: patient is progressing back to baseline - Discharge Instructions Follow Up With: Keenan Poe DO [Primary Care Provider] - Real Luna MD [Partnered Physician] - 03/23/17 11:15 am Additional Instructions: F/up with /Urology in 1-2 weeks - Diet and Activity Activity: as per physical therapy Diet: low fat, low cholesterol, low salt diet Hospital course: Ms. Mcginnis is a 81 year old female with history of hypertension and hypothyroidism, was admitted with generalized weakness and near syncope. Initial labs showed urinalysis suggestive of UTI and patient was started on empiric IV antibiotics. Urine culture subsequently to pansensitive Escherichia coli and patient completed a seven-day course of antibiotics while in the hospital. CT abdomen/pelvis revealed an infiltrative and fungating 8 cm right-sided urinary bladder mass, with obstruction of ureteral recycle junction and associated right-sided hydroureteronephrosis. Urology was consulted and patient received right nephrostomy tube and subsequently transurethral resection of bladder mass. 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 Patient and family declined aggressive intervention and CODE STATUS has been changed to DNR comfort care arrest/DNI. Case was discussed with urology and patient is currently medically stable for discharge with outpatient urology follow-up to discuss treatment options. Patient is also noted to have leukocytosis, which is likely related to underlying malignancy rather than infection. She is noted to have a mild elevation in serum creatinine and probably does have chronic kidney disease, serum creatinine currently stable. Patient lives alone and requires short-term assistance and 24 hour supervision at home, which cannot be arranged at this time. Therefore patient is being transferred to short-term rehabilitation at [facility]. - Time Spent with Patient Total time spent providing and/or coordinating discharge services: Greater than 30 minutes (45 min) - Constitutional Vitals: Temp Pulse Resp BP Pulse Ox 98.4 F 88 14 133/66 96 03/10/17 14:20 03/10/17 14:20 03/10/17 14:20 03/10/17 14:20 03/10/17 14:20 General appearance: Present: A&O X 3, answers questions appropriately - Respiratory Respiratory exam: Present: CTAB. Absent: accessory muscle use, rales, rhonchi, wheezes - Cardiovascular Cardiovascular exam: Present: RRR, +S1, +S2. Absent: diastolic murmur, gallop, rubs, systolic murmur - VTE Documentation of Mechanical Device: Intermittent pneumatic compression device
--- NOTE | 2017-03-10 14:30 | Physician Discharge Referral ---
ExtendedCare Referral Info Transfer To: [facility] Provider in Charge: Shalini Tavarez Provider in Charge after Transfer: PCP Institutional Level of Care: Skilled - Diagnosis (1) Bladder mass Priority: Primary Status: Acute (2) Hydroureteronephrosis Priority: Primary Status: Acute (3) Generalized weakness Priority: Primary Status: Acute (4) UTI (urinary tract infection) Priority: Primary Status: Acute (5) Hypertension Priority: Secondary Status: Chronic (6) Hypothyroidism Priority: Secondary Status: Chronic (7) Severe protein-calorie malnutrition Priority: Secondary Status: Chronic (8) Leukocytosis Priority: Primary Status: Acute (9) Anemia Priority: Secondary Status: Chronic (10) Chronic kidney disease Priority: Secondary Status: Chronic Expected Duration of Placement: 3 weeks Prognosis: Fair Aware of Diagnosis: Patient, Family Aware of Prognosis: Patient, Family - Transfer Medications Home Medications: Levothyroxine Sodium 75 mcg PO QAM 03/03/17 [History] Multivit-Min/FA/Lycopen/Lutein [Centrum Silver Tablet] 1 each PO DAILY 03/03/17 [History] amLODIPine [Norvasc] 5 mg PO DAILY 03/03/17 [History] Docusate [Colace] 100 mg PO BID capsule 03/10/17 [Rx] Ferrous Sulfate 325 mg PO DAILY@0800 tablet 03/10/17 [Rx] Allergies/Adverse Reactions: 3 Allergy/AdvReac Type Severity Reaction Status Date / Time Penicillins Allergy Hives Verified 03/03/17 12:30 - Respiratory Orders Smoking Cessation: Smoking cessation has been advised. For more information, call the [place] Tobacco Quit Line at 8-991-EUQW-NOW. - Advance Directives Code Status: DNR-Arrest/Don't Intubate - Mobility Orders Ambulate - Rehabiliation Orders Rehab Potential: Fair Rehab Orders: ROM Exercises, Evaluation for Physical Therapy, Evaluation for Occupational Therapy - Diet Orders Cardiac CERTIFICATION: I certify that the transfer of the above named patient to an Extended Care Facility is necessary for the continuing treatment of the diagnosis listed. The above information is true and accurate reflection of patient's current condition. Confidential - Redisclosure prohibited without a patient's written consent.
[2017-03-10] MEDS ORDERED: FLUARIX QUAD 2017-18 36MOS UP/PF 0.5 ML SYRINGE IM ONE (15:47)
== END 2017-03-10 16:30 | DRG 668 ==
LOC: 3ANU 12:26 → EMEROO 12:26 → 3ANU 16:25 → SUATTDRO 17:17 → 3ANU 03-08 22:07
PROVIDERS: ADMIT Nurse Practitioner Family; ATTEND Internal Medicine

== ENCOUNTER 2017-05-02 20:21 | Inpatient (IN) ==
[2017-05-02] MEDS ORDERED: 0.9 % Sodium Chloride 1,000 ML IVC ONE (20:36)
[2017-05-02] MEDS ORDERED: 0.9 % Sodium Chloride 1,000 ML ONE (20:38)
[2017-05-02 20:47] LABS: Basophils % 0.1 %; Hematocrit 32.4 % (35.3-44.9); Hemoglobin 10.1 g/dL (11.5-15.4); Immature Granulocytes % 0.6 % (0-4); Lymphocytes # 0.2 K/mcL (0.6-4.6); Mean Corpuscular HGB Conc 31.2 g/dL (31.6-35.5); Mean Corpuscular Volume 86.6 fL (83.0-100.0); Mean Platelet Volume 9.3 fL (9.4-12.4); Monocytes # 0.3 K/mcL (0.0-1.3); Monocytes % 1.4 %; Neutrophils # 21.5 K/mcL (1.6-8.9); Platelet Count 284 K/mcL (140-400); Red Blood Count 3.74 M/mcL (3.82-4.97); Red Cell Distribution Width 16.8 % (11.5-14.5); Segmented Neutrophils % 96.9 %
--- NOTE | 2017-05-02 20:56 | Emergency Department Note ---
Disposition Clinical Impression: Nephrostomy status UTI (urinary tract infection) Qualifiers: Urinary tract infection type: site unspecified Hematuria presence: with hematuria Qualified Code(s): N39.0 - Urinary tract infection, site not specified Bladder cancer Qualifiers: Bladder location: unspecified site Qualified Code(s): C67.9 - Malignant neoplasm of bladder, unspecified Altered mental status Qualifiers: Altered mental status type: transient alteration of awareness Qualified Code(s) : R40.4 - Transient alteration of awareness Sepsis Qualifiers: Sepsis type: sepsis due to unspecified organism Qualified Code(s): A41.9 - Sepsis, unspecified organism Disposition: Admitted As Inpatient Condition: Undetermined Time of Disposition: 21:40 Altered Mental Status HPI - General Chief Complaint: ED Altered Mental Status Stated Complaint: AMS, Fever, "UTI" Time Seen by Provider: 05/02/17 20:29 Source: patient, family, EMS Mode of arrival: EMS Limitations: altered mental status Nursing Notes Reviewed: Yes Vital Signs Reviewed: Yes - History of Present Illness HPI Narrative: 81-year-old female with history of bladder cancer who is on palliative treatment at this time arrives to the emergency department complaining of alteration of mentation as well as lower abdominal pain. The patient is currently being cared for at home by family members are noted change in her mentation over the course of the past 24 hours. The patient is complaining of lower abdominal pain as well. The patient denies any complaints but was noted to have a fever at home as well as here 100.5. The patient has also noted some dysuria as well. Patient denies any other complaints at this time. She has been moving all 4 extremities and able to really without difficulty. Family does note that she has been very weak as well. Upon arrival to the emergency department the patient is tachycardic. EMS noted that she remain altered throughout but again was moving all 4 charities and had no focalized weakness noted. MD complaint: altered mental status Onset (ago): day(s) (1) Timing confirmed by: family member Pain Severity: mild Pain Scale: 1 Consistency of Symptoms: waxing and waning, getting worse Context: cancer Associated symptoms: Reports: fever, chills, loss of appetite, malaise, foul smelling urine - Related Data Home Medications Medication Instructions Recorded Confirmed Levothyroxine Sodium 75 mcg PO QAM 03/03/17 04/12/17 Multivit-Min/FA/Lycopen/Lutein 1 each PO DAILY 03/03/17 04/12/17 [Centrum Silver Tablet] amLODIPine [Norvasc] 5 mg PO DAILY 03/03/17 04/12/17 Previous Rx's Medication Instructions Recorded Docusate [Colace] 100 mg PO BID capsule 03/10/17 Ferrous Sulfate 325 mg PO DAILY@0800 tablet 03/10/17 Allergies Allergy/AdvReac Type Severity Reaction Status Date / Time levofloxacin Allergy See Verified 05/02/17 20:24 Comments Penicillins Allergy Hives Verified 04/12/17 09:12 All systems ED: reviewed and negative except as stated. Constitutional: Reports: fever, chills, weakness ENT ED: Denies: congestion Cardiovascular: Denies: chest pain Respiratory: Denies: dyspnea Gastrointestinal: Reports: abdominal pain. Denies: nausea, vomiting, diarrhea, constipation, hematemesis, melena, hematochezia Genitourinary: Reports: urgency, dysuria, frequency. Denies: hematuria, discharge Musculoskeletal: Denies: back pain, neck pain, arthralgia, myalgia Neurological: Reports: weakness, confusion. Denies: headache, numbness, paresthesias Past Medical History - Past Medical History Attestation: Yes The following information was validated with the patient. Source: patient Medical history: Reports: cancer, hypertension, thyroid disease Surgical history: Reports: non-contributory Psychiatric history: Reports: no psych history - Social History Smoking Status: Never smoker Smokeless Tobacco Status: No Alcohol use: Reports: none Drug use: Reports: none Physical Exam - General Limitations: altered mental status General appearance: lethargic - Head Head exam: atraumatic, normocephalic, normal inspection - Eye Eye exam: Present: normal appearance, PERRL, EOMI - ENT ENT exam: normal exam, normal oropharynx, mucous membranes moist - Neck Neck exam: Present: normal inspection, full ROM, trachea midline - Chest Chest inspection: Present: normal inspection, symmetric chest wall rise - Respiratory Respiratory exam: Present: normal lung sounds bilaterally - Cardiovascular Cardiovascular exam: Present: normal rhythm, tachycardia, normal heart sounds - Abdominal Exam Abdominal exam: Present: soft, tenderness (Lower abdomen). Absent: distention, guarding, rebound, rigidity, heel tap sign, Dejesus's sign, Rovsing's sign - Extremities Exam Extremities exam: Present: normal inspection, full ROM. Absent: tenderness, pedal edema - Neurological Exam Neurological exam: Present: alert - Expanded Neurological Exam Patient oriented to: Present: person Speech: Present: fluid speech Cranial nerves: EOM function (II, III, IV, ): Normal, facial sensation (V): Normal, facial palsy (VII): Normal Motor strength - LUE: 3/5 Motor strength - RUE: 3/5 Motor strength - LLE: 3/5 Motor strength - RLE: 3/5 Coma Scale Eye Opening: Spontaneous Coma Scale Motor Response: Obeys Commands Coma Scale Verbal Response: Confused Coma Scale Total: 14 Course Vital Signs Temperature 100.5 F H 05/02/17 20:25 Pulse Rate 121 05/02/17 20:25 Respiratory Rate 18 05/02/17 20:25 Blood Pressure 129/72 05/02/17 20:25 O2 Sat by Pulse Oximetry 98 05/02/17 20:25 Temperature 100.5 F H 05/02/17 20:25 Pulse Rate 115 05/02/17 21:47 Respiratory Rate 20 05/02/17 21:47 Blood Pressure 137/68 05/02/17 21:47 O2 Sat by Pulse Oximetry 95 05/02/17 21:47 Oxygen Delivery Oxygen Delivery Room Air Altered Mental Status - MDM Narrative Medical decision making narrative: Patient's workup here in the emergency department demonstrates findings consistent with a UTI. The patient is noted septic. We will begin the patient on Rocephin. She was given IV fluids. The patient will be admitted to the hospitalist for further care and workup. She accepted by Dr. Mendez. - Medical Records Medical records reviewed: Yes I reviewed the patient's medical records. - Lab Data Lab results reviewed: Yes I reviewed the patient's lab results. Result diagrams: 05/02/17 20:38 05/02/17 20:38 Lab Results 05/02/17 05/02/17 05/02/17 Range/Units 20:38 20:38 20:38 WBC 22.2 H (4.3-11.1) K/mcL RBC 3.74 L (3.82-4.97) M/mcL Hgb 10.1 L (11.5-15.4) g/dL Hct 32.4 L (35.3-44.9) % MCV 86.6 (83.0-100.0) fL MCH 27.0 L (28.0-33.3) pg MCHC 31.2 L (31.6-35.5) g/dL RDW 16.8 H (11.5-14.5) % Plt Count 284 (140-400) K/mcL MPV 9.3 L (9.4-12.4) fL Immature Gran % 0.6 (0-4) % Seg Neutrophils % 96.9 % Lymphocytes % 1.0 % Monocytes % 1.4 % Eosinophils % 0.0 % Basophils % 0.1 % Neutrophils # 21.5 H (1.6-8.9) K/mcL Lymphocytes # 0.2 L (0.6-4.6) K/mcL Monocytes # 0.3 (0.0-1.3) K/mcL Eosinophils # 0.0 (0.0-0.6) K/mcL Basophils # 0.0 (0.0-0.2) K/mcL Platelet Estimate Normal (Normal) Anisocytosis 1+ A (Not Present) Sodium 135 L (136-145) mEq/L Potassium 3.7 (3.5-4.5) mEq/L Chloride 101 (98-109) mEq/L Carbon Dioxide 25 (19-29) mEq/L BUN 23 H (7-20) mg/dL Creatinine 1.30 H (0.57-1.11) mg/dL Est GFR ( Amer) 48 L (> 60) Est GFR (Non-Af Amer) 39 L (> 60) BUN/Creatinine Ratio 18 (6-26) Glucose 103 H (70-99) mg/dL Calculated Osmolality 284 (280-300) Lactic Acid 1.8 (0.5-2.2) mmol/L Calcium 9.6 (8.6-10.8) mg/dL Total Bilirubin 0.4 (0.2-1.2) mg/dL AST 20 (5-34) Units/L ALT 17 (0-55) Units/L Alkaline Phosphatase 116 (38-126) Units/L Troponin I (0-0.03) ng/mL Serum Total Protein 7.2 (6.0-8.3) g/dL Albumin 2.3 L (3.5-5.0) g/dL Globulin 4.9 H (2.4-3.5) g/dL Albumin/Globulin Ratio 0.5 L (1.1-2.2) Urine Color (Yellow) Urine Clarity (Clear) Urine pH (5.0-8.0) pH Units Ur Specific [place] (1.010-1.025) Urine Protein (Neg-Trace) mg/dL Urine Glucose (UA) (Normal) mg/dL Urine Ketones (Negative) mg/dL Urine Blood (Negative) Urine Nitrite (Negative) Urine Bilirubin (Negative) Urine Urobilinogen (Normal) mg/dL Ur Leukocyte Esterase (Negative) Urine Microscopic RBC (0-3) per hpf Urine Microscopic WBC (0-3) per hpf Ur Squamous Epith Cells (None-Few) per lpf Urine Bacteria (None-Few) per hpf Ur Culture Indicated? (NO) 05/02/17 05/02/17 Range/Units 20:38 21:16 WBC (4.3-11.1) K/mcL RBC (3.82-4.97) M/mcL Hgb (11.5-15.4) g/dL Hct (35.3-44.9) % MCV (83.0-100.0) fL MCH (28.0-33.3) pg MCHC (31.6-35.5) g/dL RDW (11.5-14.5) % Plt Count (140-400) K/mcL MPV (9.4-12.4) fL Immature Gran % (0-4) % Seg Neutrophils % % Lymphocytes % % Monocytes % % Eosinophils % % Basophils % % Neutrophils # (1.6-8.9) K/mcL Lymphocytes # (0.6-4.6) K/mcL Monocytes # (0.0-1.3) K/mcL Eosinophils # (0.0-0.6) K/mcL Basophils # (0.0-0.2) K/mcL Platelet Estimate (Normal) Anisocytosis (Not Present) Sodium (136-145) mEq/L Potassium (3.5-4.5) mEq/L Chloride (98-109) mEq/L Carbon Dioxide (19-29) mEq/L BUN (7-20) mg/dL Creatinine (0.57-1.11) mg/dL Est GFR ( Amer) (> 60) Est GFR (Non-Af Amer) (> 60) BUN/Creatinine Ratio (6-26) Glucose (70-99) mg/dL Calculated Osmolality (280-300) Lactic Acid (0.5-2.2) mmol/L Calcium (8.6-10.8) mg/dL Total Bilirubin (0.2-1.2) mg/dL AST (5-34) Units/L ALT (0-55) Units/L Alkaline Phosphatase (38-126) Units/L Troponin I 0.02 (0-0.03) ng/mL Serum Total Protein (6.0-8.3) g/dL Albumin (3.5-5.0) g/dL Globulin (2.4-3.5) g/dL Albumin/Globulin Ratio (1.1-2.2) Urine Color Dark Yellow (Yellow) Urine Clarity Turbid A (Clear) Urine pH 6.0 (5.0-8.0) pH Units Ur Specific [place] 1.015 (1.010-1.025) Urine Protein >=300 H (Neg-Trace) mg/dL Urine Glucose (UA) Normal (Normal) mg/dL Urine Ketones Negative (Negative) mg/dL Urine Blood Large H (Negative) Urine Nitrite Positive A (Negative) Urine Bilirubin Negative (Negative) Urine Urobilinogen Normal (Normal) mg/dL Ur Leukocyte Esterase Large H (Negative) Urine Microscopic RBC TNTC H (0-3) per hpf Urine Microscopic WBC TNTC H (0-3) per hpf Ur Squamous Epith Cells Many H (None-Few) per lpf Urine Bacteria Many H (None-Few) per hpf Ur Culture Indicated? YES A (NO) - Radiology Data Radiology results reviewed: Yes I reviewed the patient's radiology results. - EKG Data EKG attestation: Yes I reviewed and interpreted this EKG. EKG results narrative: Heart rate 1 31 bpm. [place] interval 132 ms. QTC 364 ms. Sinus tachycardia. No ST elevation or ST depression noted. She otherwise similar in morphology to EKG from 03/03/2017 with the exception of new tachycardia. Attestation Statement - Attestation Attestation: I, Robert Angel MD, personally evaluated this patient and discussed their management with the resident physician. I reviewed the resident's note and agree with the documented findings, medical decision making, and plan of care. 81-year-old female presents to the emergency department with a complaint of increased generalized weakness associated with chills and fever which just started shortly prior to arrival. Patient has a history of bladder cancer. She does admit to some intermittent abdominal pain. Family reports that she was fine earlier this afternoon but then this evening became so weak she was unable to get up off the couch. On examination the patient is a well-developed thin elderly female in no acute distress. She is alert and answers questions. There is no cyanosis or diaphoresis. Breath sounds are decreased but equal bilaterally. Heart is tachycardic and mildly irregular. Abdomen is soft with present bowel sounds. No significant tenderness on palpation. Labs reviewed. Leukocytosis with UTI. CT shows a percutaneous nephrostomy tube and invasive mass involving the bladder which was present previously. The hospitalist, Dr. Bermeo, was consulted and accepted admission of the patient.
[2017-05-02] MEDS ORDERED: Acetaminophen 325 MG TABLET PO ONE (20:57)
[2017-05-02 21:02] LABS: Albumin 2.3 g/dL (3.5-5.0); Albumin/Globulin Ratio 0.5 (1.1-2.2); Bilirubin,Total 0.4 mg/dL (0.2-1.2); Calcium 9.6 mg/dL (8.6-10.8); Globulin 4.9 g/dL (2.4-3.5); Potassium 3.7 mEq/L (3.5-4.5); Total Protein 7.2 g/dL (6.0-8.3)
[2017-05-02 21:04] LABS: Platelet Estimate Normal (Normal)
[2017-05-02 21:05] LABS: Anisocytosis 1+ (Not Present)
[2017-05-02 21:26] LABS: Bilirubin,Urine Negative (Negative); Blood,Urine Large (Negative); Clarity,Urine Turbid (Clear); Color,Urine Dark Yellow (Yellow); Glucose,Urine (UA) Normal (Normal); Ketones,Urine Negative (Negative); Leukocyte Esterase,Urine Large (Negative); Nitrite,Urine Positive (Negative); Protein,Urine >=300 mg/dL (Neg-Trace); Specific Gravity,Urine 1.015 (1.010-1.025); Urobilinogen,Urine Normal (Normal)
[2017-05-02 21:29] LABS: Bacteria,Urine Many per hpf (None-Few); RBC,Urine TNTC per hpf (0-3); Squamous Epithelial Cell,Urine Many per lpf (None-Few); WBC,Urine TNTC per hpf (0-3)
[2017-05-02] MEDS ORDERED: cefTRIAXone 1,000 MG in Water for inj. (sterile) 10 ML IVP ONE (21:30)
[2017-05-02] MEDS ORDERED: Acetaminophen 325 MG TABLET PO PRN (23:40)
[2017-05-02] MEDS ORDERED: Ondansetron 4 MG/2 ML VIAL IVP PRN (23:40)
[2017-05-02] MEDS ORDERED: Naloxone 0.4 MG/ML INJ IVP PRN (23:40)
--- NOTE | 2017-05-02 23:44 | Internal Med History&Physical ---
Date of Encounter: 05/02/17 Time of Encounter: 23:30 Assessment and Plan (1) Sepsis Current visit: Yes Status: Acute Sepsis, present on admission - secondary to UTI, possibly due to nephrostomy tube Continue empiric IV Rocephin, IV Vancomycin, Tylenol PRN, IV fluids Cultures - pending CT abdomen and pelvis - infiltrating mass in the right side of bladder, large hiatal hernia, colonic diverticulosis, cholelithiasis Chest x-ray - pending Lactic acid - 1.8 Troponin - 0.02 EKG - sinus tachycardia with no acute ST-T changes Cardiac telemetry, pulse ox, labs in a.m., monitor closely Qualifiers: Sepsis type: sepsis due to unspecified organism Qualified Code(s): A41.9 - Sepsis, unspecified organism (2) Acute encephalopathy Current visit: Yes Status: Acute Acute encephalopathy - likely secondary to sepsis EKG - sinus tachycardia with no acute ST-T changes Troponin - 0.02 Chest x-ray - pending Plan as above (3) UTI (urinary tract infection) Current visit: Yes Status: Acute Acute cystitis, UTI, present on admission - likely gram-negative bacilli - possibly secondary to right nephrostomy tube Continue empiric IV Rocephin, IV Vancomycin Cultures - pending Qualifiers: Urinary tract infection type: site unspecified Hematuria presence: with hematuria Qualified Code(s): N39.0 - Urinary tract infection, site not specified; R31.9 - Hematuria, unspecified; R31.9 - Hematuria, unspecified (4) Bladder cancer Current visit: Yes Status: Chronic 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 S/p recent transurethral resection of bladder mass S/p right nephrostomy tube placement for right-sided hydroureteronephrosis Patient does not want any further intervention including cystectomy or radiation - palliative treatment Patient follows up with oncology Palliative care consult Qualifiers: Bladder location: unspecified site Qualified Code(s): C67.9 - Malignant neoplasm of bladder, unspecified (5) Chronic kidney disease Current visit: Yes Status: Chronic Chronic kidney disease stage III, stable - creatinine and GFR likely at baseline Repeat labs in a.m., monitor closely Replace electrolytes as needed Qualifiers: Chronic kidney disease stage: stage 3 (moderate) Qualified Code(s): N18.3 - Chronic kidney disease, stage 3 (moderate) (6) Hypothyroidism Current visit: Yes Status: Chronic Continue home dose of Synthroid Qualifiers: Hypothyroidism type: unspecified Qualified Code(s): E03.9 - Hypothyroidism , unspecified (7) Hypertension Current visit: Yes Status: Chronic Essential hypertension, controlled, monitor Continue home dose of Norvasc Qualifiers: Hypertension type: essential hypertension Qualified Code(s): I10 - Essential (primary) hypertension (8) DVT prophylaxis Current visit: Yes Status: Acute Heparin subcutaneous Internal Medicine - H&P: HPI Chief complaint: Altered mental status Admitted From: Emergency Dept Plans for Post Hospital Care: Home History of present illness: Ms. Mcginnis is a 81 year old female with past medical history of bladder cancer on palliative treatment, hypertension and hypothyroidism. Patient presents to the ED with altered mental status. Examined in the room. Patient seems drowsy but is easily arousable. Not in any distress. Answers some questions. Able to verbalize and follows verbal commands. Patient is unable to provide history due to mental status. Daughter is at bedside, and she provides all history. Daughter states that she and other family members noticed the patient acting more confused earlier this afternoon. She states that patient was not herself. Patient also complained of generalized weakness and fatigue. Patient was noted to have a fever of 100.5. Daughter states that the change in mentation was almost sudden. Patient was apparently her at her baseline status this morning. Patient did complain of some dysuria as well. Patient denies chest pain or shortness of breath. Denies abdominal pain or vomiting. No other associated symptoms. No other acute complaints. Initial workup in the ED is significant for sepsis secondary to UTI. Patient also has mild acute kidney injury. Patient is being admitted for sepsis. She will need IV antibiotics. Patient and her daughter have been explained about her condition and plan care detail. They understood and agreed. No unanswered questions. CODE STATUS according to daughter and patient DO NOT RESUSCITATE and DO NOT INTUBATE. Past Med Surg Social Fam HX - Past Medical History Medical history: cancer, hypertension, thyroid disease Psychiatric history: no psych history - Past Surgical History Surgical History: non-contributory - Social History Smoking Status: Never smoker Smokeless Tobacco Status: No Alcohol use: none Drug use: none - Family History Mother Living Status: Internal Medicine - H&P: Meds Levothyroxine Sodium 75 mcg PO QAM 03/03/17 [History] Multivit-Min/FA/Lycopen/Lutein [Centrum Silver Tablet] 1 each PO DAILY 03/03/17 [History] amLODIPine [Norvasc] 5 mg PO DAILY 03/03/17 [History] Docusate [Colace] 100 mg PO BID capsule 03/10/17 [Rx] Ferrous Sulfate 325 mg PO DAILY@0800 tablet 03/10/17 [Rx] 3 Allergy/AdvReac Type Severity Reaction Status Date / Time levofloxacin Allergy See Verified 05/02/17 20:24 Comments Penicillins Allergy Hives Verified 04/12/17 09:12 All Systems PM: A 10-system review of systems was performed and is negative for pertinent findings except as documented above in the HPI. - Constitutional Constitutional: fatigue, fever(s), lethargy, weakness - EENT Eyes: no blurry vision Nose, mouth and throat: dry mouth - Cardiovascular Cardiovascular ROS IM: no chest pain, no diaphoresis, no dyspnea, no dyspnea on exertion, no orthopnea, no palpitations, no syncope - Respiratory Respiratory: no cough, no dyspnea, no hemoptysis, no dyspnea on exertion, no wheezing, no chest congestion - Gastrointestinal Gastrointestinal: nausea, no abdominal pain, no bloating, no diarrhea, no hematemesis, no hematochezia, no loose stools, no melena, no vomiting - Genitourinary Genitourinary: dysuria - Neurological Neurological ROS: behavioral changes, confusion, no abnormal gait, no convulsions, no dizziness, no focal weakness, no loss of vision, no numbness, no tingling - Constitutional Vitals: Temp Pulse Resp BP Pulse Ox 102.7 F H 108 18 109/66 95 05/02/17 23:06 05/02/17 23:06 05/02/17 23:06 05/02/17 23:06 05/02/17 23:06 General appearance: Present: cooperative, pleasant, no acute distress Exam: Patient is drowsy but easily arousable. Able to verbalize and follow simple commands. She is oriented to place and person, but not to time. Unable to provide good history. - Head Head exam: Present: atraumatic - Eye Eye exam: Present: EOMI - ENT ENT exam: Present: mucous membranes dry - Respiratory Respiratory exam: Present: CTAB. Absent: accessory muscle use, chest wall tenderness, rales, respiratory distress, rhonchi, wheezes, tachypnea - Cardiovascular Cardiovascular exam: Present: RRR, +S1, +S2 - GI/Abdominal GI/Abdominal exam: Present: soft, no peritoneal signs. Absent: distended, firm , guarding, tenderness - Additional comments: Right-sided nephrostomy tube in place. Mcneil catheter in place. - Extremities Exam Extremities exam: Present: radial pulses palpable and symmetrical. Absent: calf tenderness, cyanotic, pedal edema - Neurological Exam Neurological exam: Present: no focal deficits. Absent: facial droop, speech deficit Additional comments: Patient is drowsy but easily arousable. Able to verbalize and follows verbal commands. She is oriented to place and person, but not to time. No focal neurological deficits. Internal Med - H&P Results - Labs CBC & Chem 7: 05/03/17 02:49 05/03/17 02:49
[2017-05-03] MEDS: Famotidine 20 MG/2 ML VIAL IVP SCH ×2 (00:50→05:00)
[2017-05-03] MEDS: 0.9 % Sodium Chloride 1,000 ML IVC SCH (00:50)
[2017-05-03 03:16] LABS: Basophils % 0.2 %; Mean Corpuscular Volume 86.5 fL (83.0-100.0); Red Cell Distribution Width 16.9 % (11.5-14.5)
[2017-05-03 03:17] LABS: Basophils # 0.1 K/mcL (0.0-0.2); Hematocrit 24.9 % (35.3-44.9); Hemoglobin 7.8 g/dL (11.5-15.4); Immature Granulocytes % 2.6 % (0-4); Lymphocytes % 1.7 %; Mean Corpuscular HGB Conc 31.3 g/dL (31.6-35.5); Mean Corpuscular Hemoglobin 27.1 pg (28.0-33.3); Mean Platelet Volume 9.6 fL (9.4-12.4); Monocytes # 1.4 K/mcL (0.0-1.3); Monocytes % 3.7 %; Neutrophils # 34.4 K/mcL (1.6-8.9); Platelet Count 238 K/mcL (140-400); Red Blood Count 2.88 M/mcL (3.82-4.97); Segmented Neutrophils % 91.8 %
[2017-05-03 03:19] LABS: Lymphocytes # 0.6 K/mcL (0.6-4.6)
[2017-05-03 03:22] LABS: INR 1.4; Prothrombin Time 14.7 Seconds (9.4-12.1)
[2017-05-03 03:33] LABS: Magnesium 1.3 mg/dL (1.6-2.6); Potassium 3.4 mEq/L (3.5-4.5)
[2017-05-03 03:35] LABS: Calcium 7.6 mg/dL (8.6-10.8)
[2017-05-03 03:49] LABS: Platelet Estimate Normal (Normal)
[2017-05-03 04:52] LABS: % Iron Saturation 8 % (15-50); Iron 6 mcg/dL (50-170); Transferrin 56 mg/dL (180-382)
[2017-05-03] MEDS ORDERED: Vancomycin 1,000 MG in D5% in Water 250 ML IVPB ONE (05:00)
[2017-05-03] MEDS ORDERED: *HR* Heparin 5,000 UNIT/ML VIAL SQ SCH (06:00)
[2017-05-03] MEDS ORDERED: Vancomycin 1,000 MG in D5% in Water 250 ML IVPB SCH (06:00)
[2017-05-03] MEDS: cefTRIAXone 1,000 MG in Water for inj. (sterile) 10 ML IVP SCH (08:03)
[2017-05-03] MEDS: Multivit/Ca/Min/Fe/FA 1 TAB TABLET PO SCH (08:03)
--- NOTE | 2017-05-03 10:51 | Palliative - Consult Note ---
Date of Encounter: 05/03/17 Time of Encounter: 10:50 - Assessment and Plan (1) Goals of care, counseling/discussion Current Visit: Yes Status: Acute Assessment and plan: Patient lives with and has very good support at home with daughters and grandchildren. Granddaughter Yolette is her medical POA. They already have [facility] home health in place. Discussed goals of care with pt/daughter. Upon discharge, they would like to transition to [facility]. Daughter states that she is "DNR" and they only desire comfort care, but do want treatment for this infection. She states once they discharge to home, they do not plan on coming back to hospital. Unsure in Yolette has DNR state form in place, and daughter states she will have her call me to discuss. Referral made to Altagracia, drug abuse program coordinator for [facility] hospice. Will continue to follow. (2) UTI (urinary tract infection) Current Visit: Yes Status: Acute Assessment and plan: Currently receiving IV antibiotics. Family desire to continue treatment for this infection, but do not want her coming back to hospital after this admission. Qualifiers: Urinary tract infection type: site unspecified Hematuria presence: with hematuria Qualified Code(s): N39.0 - Urinary tract infection, site not specified; R31.9 - Hematuria, unspecified; R31.9 - Hematuria, unspecified (3) Altered mental status Current Visit: Yes Status: Acute Assessment and plan: This is improved with current treatment Qualifiers: Altered mental status type: transient alteration of awareness Qualified Code(s): R40.4 - Transient alteration of awareness (4) Bladder cancer Current Visit: Yes Status: Chronic Qualifiers: Bladder location: unspecified site Qualified Code(s): C67.9 - Malignant neoplasm of bladder, unspecified Palliative-CN HPI - Data of Consult Consult date: 05/03/17 Requesting Physician: Shashi Rios MD Primary Care Provider: Keenan Poe, - Consult Narrative History of present illness: Ms. Mcginnis is a very pleasant 81 year old female with a history of bladder cancer who presented with an acute onset of mental status change and weakness. Daughter at bedside states she was doing well when seen yesterday early, but within a few hours, was confused and unable to get off couch. She was admitted and currently being treated for UTI. She has been seen by [facility] and radiation services, and did decline all interventions. She had home health in place prior to admission. She had right nephrostomy tube that was placed in February and due to be changed out in May with Dr. Luna. Only other medical history is hypertension/thyroid/anxiety. Upon my visit, she is alert and oriented. Daughter is at bedside. She denies any pain/dyspnea/n/v. C/o generalized weakness and "feeling tired". CC: Shashi Rios MD Past Med Surg Social Fam HX - Past Medical History Medical history: cancer, hypertension, thyroid disease Psychiatric history: no psych history - Past Surgical History Surgical History: non-contributory - Social History Smoking Status: Never smoker Smokeless Tobacco Status: No Alcohol use: none Drug use: none - Family History Mother Living Status: Medications and Allergies Levothyroxine Sodium 75 mcg PO QAM 03/03/17 [History] Multivit-Min/FA/Lycopen/Lutein [Centrum Silver Tablet] 1 each PO DAILY 03/03/17 [History] amLODIPine [Norvasc] 5 mg PO DAILY 03/03/17 [History] Docusate [Colace] 100 mg PO BID capsule 03/10/17 [Rx] Ferrous Sulfate 325 mg PO DAILY@0800 tablet 03/10/17 [Rx] 3 Allergy/AdvReac Type Severity Reaction Status Date / Time levofloxacin Allergy See Verified 05/02/17 20:24 Comments Penicillins Allergy Hives Verified 04/12/17 09:12 All systems: reviewed and no additional remarkable complaints except as stated ( generalized weakness and tiredness, anxiety) Palliative Care-Exam - Constitutional Vitals: Temp Pulse Resp BP Pulse Ox 97.6 F 79 17 96/60 97 05/03/17 07:54 05/03/17 07:54 05/03/17 07:54 05/03/17 07:54 05/03/17 08:12 General appearance: Present: no acute distress, thin - Eye Pupils: Present: normal accommodation, PERRL - Respiratory Respiratory exam: Present: decreased breath sounds, CTAB - Cardiovascular Cardiovascular exam: Present: +S1, +S2 - GI/Abdominal Exam GI/Abdominal exam: Present: normal bowel sounds, soft - Additional comments: Mcneil with bloody urine. Rt Nephrostomy tube with yellow urine - Extremities Exam Extremities exam: Present: normal capillary refill, normal inspection - Neurological Exam Neurological exam: Present: alert, oriented X3, strengths equal and symetr throughout - Skin Skin exam: Present: dry, pallor, warm Internal Medicine - CN: Reslt - Labs CBC & Chem 7: 05/03/17 02:49 05/03/17 02:49 Labs: Short CBC 05/03/17 Range/Units 02:49 WBC 37.5 H* D (4.3-11.1) K/mcL Hgb 7.8 L D (11.5-15.4) g/dL Hct 24.9 L (35.3-44.9) % Plt Count 238 (140-400) K/mcL Neutrophils # 34.4 H (1.6-8.9) K/mcL BMP 05/03/17 02:49 Sodium 134 L Potassium 3.4 L Chloride 105 Carbon Dioxide 23 BUN 22 H Creatinine 1.24 H Glucose 105 H Calcium 7.6 L D - ABG Interpretation ABG results: PT/INR, D-dimer PT 14.7 Seconds (9.4-12.1) H 05/03/17 02:49 - Impressions Impressions Chest X-Ray 05/03/17 23:40 IMPRESSION: No acute disease. D/ / Dennis Mejias MD / Dennis Mejias MD Interpreting Provider: Dennis Mejias MD Consult Discharge Plan - Plan Referrals: Keenan Poe DO [Primary Care Provider] - Palliative Quality Palliative Quality: Screen for Code Status: Yes, Screen for Goals of Care: Yes, Screen for Pain: Yes, If Pain Regimen Started, Initiate Bowel Regimen: NA, Screen for Nausea/Vomitting: Yes Code Status: 05/03/17 10:45 DNR [Resuscitation Status: Active] [RES] Routine Comment: Resuscitation Status: DNR-Comfort Care
--- NOTE | 2017-05-03 11:08 | Internal Med Progress Note ---
<Nasir Black - Last Filed: 05/03/17 16:10> Date of Encounter: 05/03/17 Time of Encounter: 09:15 - Assessment and plan (1) Sepsis Current Visit: Yes Status: Acute Assessment and plan: Patient was septic on admission to the hospital; temperature 100.5, white count 22.2. pulse 115, lactic acid 1.8, known source of infection; UTI. Patient's white count increased to 37.5. Blood pressure this morning was 96/ 60. Temperature has decreased to 97.6. Plan: -Rocephin 1000 mg IV daily started on 05/02/17; day 2 of antibiotics -Pulse dose of vancomycin was given on 05/03/17 -IV fluids at 80 mL/h -Blood and urine cultures pending Qualifiers: Sepsis type: sepsis due to unspecified organism Qualified Code(s): A41.9 - Sepsis, unspecified organism (2) Bladder cancer Current Visit: Yes Status: Chronic Assessment and plan: Patient has a known history of bladder cancer. 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 -Status post recent transurethral resection of bladder mass. -Status post right nephrostomy tube placement for right-sided hydroureteronephrosis. -Patient does not want any further intervention such as cystectomy or radiation ; palliative treatment. -Patient follows up with oncology. -Patient's CODE STATUS is DNR comfort care. -Palliative care has been consulted; would appreciate recommendations Qualifiers: Bladder location: unspecified site Qualified Code(s): C67.9 - Malignant neoplasm of bladder, unspecified (3) UTI (urinary tract infection) Current Visit: Yes Status: Acute Assessment and plan: Patient's urinalysis was significant for the following: Turbid, red blood cells and white blood cells too numerous to count, many bacteria, nitrite positive, blood present. -Likely gram-negative bacilli; possibly secondary to right sided nephrostomy tube. -According to family member at bedside, patient's nephrostomy bag appears cloudier than normal. -Blood and urine cultures are currently pending. -Continue IV Rocephin and IV vancomycin. Qualifiers: Urinary tract infection type: site unspecified Hematuria presence: with hematuria Qualified Code(s): N39.0 - Urinary tract infection, site not specified; R31.9 - Hematuria, unspecified; R31.9 - Hematuria, unspecified (4) Chronic kidney disease Current Visit: Yes Status: Chronic Assessment and plan: Patient has chronic kidney disease stage III, stable. -Replace electrolytes as needed. -Creatinine is elevated at 1.24, likely at baseline. Qualifiers: Chronic kidney disease stage: stage 3 (moderate) Qualified Code(s): N18.3 - Chronic kidney disease, stage 3 (moderate) (5) Acute encephalopathy Current Visit: Yes Status: Acute Assessment and plan: Patient's acute encephalopathy and confusion most likely secondary to sepsis. Patient's altered mental status has since improved. Patient is alert and oriented 3. (6) DVT prophylaxis Current Visit: Yes Status: Acute Assessment and plan: Heparin 5000 subcutaneous 12 - Subjective Interval history: Patient is an 81-year-old female with a history of bladder cancer who presented to the emergency department with chief complaint of confusion and lower abdominal pain. Patient is currently cared for by family members, who noted a change in her mentation in the 24 hours leading up to admission. Patient does not have any complaints upon arrival, but did have a fever at 100.5. Patient also had some dysuria. Family reports that she was weaker than normal. Upon arrival to the emergency department, patient was tachycardic. She had an elevated pulse rate of 115. Her respiratory rate was 20. White count was elevated at 22.2. Chest x-ray was unremarkable. Urinalysis was significant for the following: Turbid, red blood cells and white blood cells too numerous to count, many bacteria, nitrite positive, blood present. Patient was started on IV vancomycin and IV Rocephin. IV fluids were started. CT scan of the abdomen and pelvis demonstrated the following: Infiltrating mass in the right side of the bladder, large hiatal hernia, colonic diverticulosis, cholelithiasis. Lactic acid was 1.8. Patient was seen and examined at bedside this morning. Patient reports that she is feeling much better today. She reports that she does not remember her initial confusion and presentation to the hospital. Patient is A&OX3 and denies having any abdominal pain. She has no complaints at this time. - Constitutional Vitals: Temp Pulse Resp BP Pulse Ox 97.6 F 79 17 96/60 97 05/03/17 07:54 05/03/17 07:54 05/03/17 07:54 05/03/17 07:54 05/03/17 08:12 General appearance: Present: cooperative, pleasant, no acute distress - Head Head exam: Present: atraumatic, normocephalic - Eye Eye exam: Present: PERRL, conjuntiva pink, sclera anicteric Pupils: Present: PERRL - Neck Neck exam general surgery: Present: supple, trachea midline. Absent: lymphadenopathy - Respiratory Respiratory exam: Present: CTAB. Absent: accessory muscle use, rales, rhonchi, wheezes - Cardiovascular Cardiovascular exam: Present: RRR, +S1, +S2. Absent: diastolic murmur, gallop, rubs, systolic murmur - GI/Abdominal GI/Abdominal exam: Present: normal bowel sounds, soft, no peritoneal signs. Absent: distended, tenderness - Skin Skin exam: Present: dry, intact Internal Medicine: Result - Labs CBC & Chem 7: 05/03/17 02:49 05/03/17 02:49 Labs: Short CBC 05/03/17 Range/Units 02:49 WBC 37.5 H* D (4.3-11.1) K/mcL Hgb 7.8 L D (11.5-15.4) g/dL Hct 24.9 L (35.3-44.9) % Plt Count 238 (140-400) K/mcL Neutrophils # 34.4 H (1.6-8.9) K/mcL BMP 05/03/17 02:49 Sodium 134 L Potassium 3.4 L Chloride 105 Carbon Dioxide 23 BUN 22 H Creatinine 1.24 H Glucose 105 H Calcium 7.6 L D - ABG Interpretation ABG results: PT/INR, D-dimer PT 14.7 Seconds (9.4-12.1) H 05/03/17 02:49 - Impressions Impressions Chest X-Ray 05/03/17 23:40 IMPRESSION: No acute disease. D/ / Dennis Mejias MD / Dennis Mejias MD Interpreting Provider: Dennis Mejias MD Consult Discharge Plan - Plan Referrals: Keenan Poe DO [Primary Care Provider] - <Rob Woody - Last Filed: 05/03/17 20:13> Date of Encounter: 05/03/17 - Constitutional Vitals: Temp Pulse Resp BP Pulse Ox 97.6 F 79 17 96/60 97 05/03/17 07:54 05/03/17 07:54 05/03/17 07:54 05/03/17 07:54 05/03/17 08:12 Internal Medicine: Result - Labs CBC & Chem 7: 05/03/17 02:49 05/03/17 02:49 Labs: Short CBC 05/03/17 Range/Units 02:49 WBC 37.5 H* D (4.3-11.1) K/mcL Hgb 7.8 L D (11.5-15.4) g/dL Hct 24.9 L (35.3-44.9) % Plt Count 238 (140-400) K/mcL Neutrophils # 34.4 H (1.6-8.9) K/mcL BMP 05/03/17 02:49 Sodium 134 L Potassium 3.4 L Chloride 105 Carbon Dioxide 23 BUN 22 H Creatinine 1.24 H Glucose 105 H Calcium 7.6 L D - ABG Interpretation ABG results: PT/INR, D-dimer PT 14.7 Seconds (9.4-12.1) H 05/03/17 02:49 - Impressions Impressions Chest X-Ray 05/03/17 23:40 IMPRESSION: No acute disease. D/ / Dennis Mejias MD / Dennis Mejias MD Interpreting Provider: Dennis Mejias MD - Attending Attestation I conducted a face to face diagnostic evaluation of this patient and my medical decision-making was reviewed with the Resident Physician, Dr. Nasir Black. I agree with the documented findings, disposition and treatment plan as described except to the extent set forth below: I appreciate palliative care service recommendations. We will continue broad-spectrum IV antibiotics. Patient is DNR CC. Follow-up cultures and adjust antibiotic therapy.
--- NOTE | 2017-05-03 15:47 | Electrocardiograph Report ---
[place] [id number] Test Date: 2017-05-02 Pat Name: Carol Mcginnis Department: 104 Room: 2A Gender: F [employer]: ZENIA : [id number] Requested By: Daniel Peralta Order Number: [id number] Reading MD: Regis Heaton Measurements Intervals [place] Rate: 131 P: 87 [place]: 132 QRS: -5 QRSD: 80 T: -9 QT: 287 QTc: 364 Interpretive Statements SINUS TACHYCARDIA WITH FREQUENT SUPRAVENTRICULAR PREMATURE COMPLEXES INFERIOR MYOCARDIAL INFARCTION, PROBABLY OLD Electronically Signed On 05-03-2017 15:46:01 EST by Regis Heaton
[2017-05-03] MEDS ORDERED: WATER IVPB ONE (15:51)
[2017-05-03] MEDS ORDERED: MAGNESIUM SULFATE IVPB ONE (15:51)
[2017-05-03] MEDS ORDERED: D5 IVPB ONE (15:51)
[2017-05-04 04:27] LABS: Calcium 7.6 mg/dL (8.6-10.8); Potassium 5.1 mEq/L (3.5-4.5)
[2017-05-04 04:47] LABS: Mean Platelet Volume 9.8 fL (9.4-12.4)
[2017-05-04 04:48] LABS: Hematocrit 28.9 % (35.3-44.9); Mean Corpuscular HGB Conc 31.1 g/dL (31.6-35.5); Mean Corpuscular Hemoglobin 27.4 pg (28.0-33.3); Mean Corpuscular Volume 87.8 fL (83.0-100.0); Platelet Count 203 K/mcL (140-400); Red Blood Count 3.29 M/mcL (3.82-4.97); Red Cell Distribution Width 17.2 % (11.5-14.5)
[2017-05-04] MEDS: 0.9 % Sodium Chloride 1,000 ML IVC SCH (06:49)
[2017-05-04] MEDS ORDERED: Vancomycin 750 MG in D5% in Water 250 ML IVPB ONE (07:00)
[2017-05-04] MEDS: cefTRIAXone 1,000 MG in Water for inj. (sterile) 10 ML IVP SCH (08:00)
[2017-05-04] MEDS: Multivit/Ca/Min/Fe/FA 1 TAB TABLET PO SCH (08:00)
[2017-05-04 08:40] VITALS: BP 116/65
[2017-05-04] MEDS ORDERED: Pantoprazole 40 MG VIAL IVP SCH (09:00)
--- NOTE | 2017-05-04 09:39 | Palliative Progress Note ---
Date of Encounter: 05/04/17 Time of Encounter: 09:30 - Assessment and plan (1) Goals of care, counseling/discussion Current Visit: Yes Status: Acute Assessment and plan: Expect discharge home soon when ok with hospitalist. She will transition home with [facility] hospice. She has not required any PRN comfort medications and is pain- free. I am not doing prescriptions for hospice, and will let their hospice team order her comfort pack after discharge. State DNRCC form was completed yesterday and copies provided to family. (2) UTI (urinary tract infection) Current Visit: Yes Status: Acute Qualifiers: Urinary tract infection type: site unspecified Hematuria presence: with hematuria Qualified Code(s): N39.0 - Urinary tract infection, site not specified; R31.9 - Hematuria, unspecified; R31.9 - Hematuria, unspecified (3) Altered mental status Current Visit: Yes Status: Acute Assessment and plan: Resolved with treatment of UTI. Qualifiers: Altered mental status type: transient alteration of awareness Qualified Code(s): R40.4 - Transient alteration of awareness (4) Bladder cancer Current Visit: Yes Status: Chronic Qualifiers: Bladder location: unspecified site Qualified Code(s): C67.9 - Malignant neoplasm of bladder, unspecified - Time Spent With Patient Total time spent is greater than 50% in coordination of care (as documented) at patient's floor/unit and/or counseling patient: - Subjective Interval history: Patient awake and alert. Daughter Altagracia at bedside. Patient states she feels good and anxious to go home. Denies any pain or discomfort. Eating well, + BM' s. - Constitutional Vitals: Abnormal lab results WBC 29.0 K/mcL (4.3-11.1) H 05/04/17 04:33 RBC 3.29 M/mcL (3.82-4.97) L 05/04/17 04:33 Hgb 9.0 g/dL (11.5-15.4) L 05/04/17 04:33 Hct 28.9 % (35.3-44.9) L 05/04/17 04:33 MCH 27.4 pg (28.0-33.3) L 05/04/17 04:33 MCHC 31.1 g/dL (31.6-35.5) L 05/04/17 04:33 RDW 17.2 % (11.5-14.5) H 05/04/17 04:33 Neutrophils # 34.4 K/mcL (1.6-8.9) H 05/03/17 02:49 Monocytes # 1.4 K/mcL (0.0-1.3) H 05/03/17 02:49 Anisocytosis 1+ (Not Present) A 05/02/17 20:38 PT 14.7 Seconds (9.4-12.1) H 05/03/17 02:49 Sodium 133 mEq/L (136-145) L 05/04/17 04:05 Potassium 5.1 mEq/L (3.5-4.5) H D 05/04/17 04:05 BUN 24 mg/dL (7-20) H 05/04/17 04:05 Creatinine 1.20 mg/dL (0.57-1.11) H 05/04/17 04:05 Est GFR ( Amer) 52 (> 60) L 05/04/17 04:05 Est GFR (Non-Af Amer) 43 (> 60) L 05/04/17 04:05 POC Glucose 102 (58-89) H 05/03/17 21:33 Calculated Osmolality 279 (280-300) L 05/04/17 04:05 Calcium 7.6 mg/dL (8.6-10.8) L 05/04/17 04:05 Magnesium 1.3 mg/dL (1.6-2.6) L 05/03/17 02:49 Iron 6 mcg/dL (50-170) L 05/03/17 04:29 % Saturation 8 % (15-50) L 05/03/17 04:29 Transferrin 56 mg/dL (180-382) L 05/03/17 04:29 Albumin 2.3 g/dL (3.5-5.0) L 05/02/17 20:38 Globulin 4.9 g/dL (2.4-3.5) H 05/02/17 20:38 Albumin/Globulin Ratio 0.5 (1.1-2.2) L 05/02/17 20:38 Urine Clarity Turbid (Clear) A 05/02/17 21:16 Urine Protein >=300 mg/dL (Neg-Trace) H 05/02/17 21:16 Urine Blood Large (Negative) H 05/02/17 21:16 Urine Nitrite Positive (Negative) A 05/02/17 21:16 Ur Leukocyte Esterase Large (Negative) H 05/02/17 21:16 Urine Microscopic RBC TNTC per hpf (0-3) H 05/02/17 21:16 Urine Microscopic WBC TNTC per hpf (0-3) H 05/02/17 21:16 Ur Squamous Epith Cells Many per lpf (None-Few) H 05/02/17 21:16 Urine Bacteria Many per hpf (None-Few) H 05/02/17 21:16 Ur Culture Indicated? YES (NO) A 05/02/17 21:16 General appearance: Present: no acute distress - Respiratory Respiratory exam: Present: decreased breath sounds, CTAB - Cardiovascular Cardiovascular exam: Present: +S1, +S2 - GI/Abdominal GI/Abdominal exam: Present: normal bowel sounds, soft - Additional comments: Nephrostomy tube intact with yellow urine - Neurological Exam Neurological exam: Present: alert, oriented X3, strengths equal and symetr throughout - Skin Skin exam: Present: dry, pallor, warm Palliative Quality Palliative Quality: Screen for Code Status: Yes, Screen for Goals of Care: Yes, Screen for Pain: Yes, If Pain Regimen Started, Initiate Bowel Regimen: NA, Screen for Nausea/Vomitting: Yes Code Status: 05/03/17 10:45 DNR [Resuscitation Status: Active] [RES] Routine Comment: Resuscitation Status: DNR-Comfort Care - Labs CBC & Chem 7: 05/04/17 04:33 05/04/17 04:05 Labs: Laboratory Results - last 24 hr 05/03/17 05/03/17 05/03/17 07:55 17:00 21:33 WBC RBC Hgb Hct MCV MCH MCHC RDW Plt Count MPV Sodium Potassium Chloride Carbon Dioxide BUN Creatinine Est GFR ( Amer) Est GFR (Non-Af Amer) BUN/Creatinine Ratio Glucose POC Glucose 105 H 102 H Calculated Osmolality Calcium Random Vancomycin 21.0 Specimen Rejected 05/04/17 05/04/17 05/04/17 04:05 04:05 04:05 WBC RBC Hgb Hct MCV MCH MCHC RDW Plt Count MPV Sodium 133 L Potassium 5.1 H D Chloride 108 Carbon Dioxide 19 BUN 24 H Creatinine 1.20 H Est GFR ( Amer) 52 L Est GFR (Non-Af Amer) 43 L BUN/Creatinine Ratio 20 Glucose 84 POC Glucose Calculated Osmolality 279 L Calcium 7.6 L Random Vancomycin 17.5 Specimen Rejected Clotted 05/04/17 04:33 WBC 29.0 H RBC 3.29 L Hgb 9.0 L Hct 28.9 L MCV 87.8 MCH 27.4 L MCHC 31.1 L RDW 17.2 H Plt Count 203 MPV 9.8 Sodium Potassium Chloride Carbon Dioxide BUN Creatinine Est GFR ( Amer) Est GFR (Non-Af Amer) BUN/Creatinine Ratio Glucose POC Glucose Calculated Osmolality Calcium Random Vancomycin Specimen Rejected - ABG Interpretation ABG results: PT/INR, D-dimer PT 14.7 Seconds (9.4-12.1) H 05/03/17 02:49 Consult Discharge Plan - Plan Referrals: Keenan Poe DO [Primary Care Provider] -
--- NOTE | 2017-05-04 10:17 | Internal Med Progress Note ---
Date of Encounter: 05/04/17 Time of Encounter: 10:00 - Assessment and plan (1) Sepsis Current Visit: Yes Status: Acute Assessment and plan: Patient was septic on admission to the hospital; temperature 100.5, white count 22.2. pulse 115, lactic acid 1.8, known source of infection; UTI. Patient's white count increased to 37.5, then down to 29.0. Plan: -Rocephin 1000 mg IV daily started on 05/02/17; day 3 of antibiotics -Pulse dose of vancomycin was given on 05/03/17 -IV fluids at 80 mL/h -Blood cultures: negative -Urine culture: Gram-negative rods Qualifiers: Sepsis type: sepsis due to unspecified organism Qualified Code(s): A41.9 - Sepsis, unspecified organism (2) Bladder cancer Current Visit: Yes Status: Chronic Assessment and plan: Patient has a known history of bladder cancer. 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 -Status post recent transurethral resection of bladder mass. -Status post right nephrostomy tube placement for right-sided hydroureteronephrosis. -Patient does not want any further intervention such as cystectomy or radiation ; palliative treatment. -Patient follows up with oncology. -Patient's CODE STATUS is DNR comfort care. -Palliative care has been consulted. Patient will transition home with [facility] hospice. Qualifiers: Bladder location: unspecified site Qualified Code(s): C67.9 - Malignant neoplasm of bladder, unspecified (3) UTI (urinary tract infection) Current Visit: Yes Status: Acute Assessment and plan: Patient's urinalysis was significant for the following: Turbid, red blood cells and white blood cells too numerous to count, many bacteria, nitrite positive, blood present. -Likely gram-negative bacilli; possibly secondary to right sided nephrostomy tube. -Blood culture performed on 05/02/17: Negative -Urine culture performed on 05/02/17: Gram-negative ceci -Continue IV Rocephin and IV vancomycin. Qualifiers: Urinary tract infection type: site unspecified Hematuria presence: with hematuria Qualified Code(s): N39.0 - Urinary tract infection, site not specified; R31.9 - Hematuria, unspecified; R31.9 - Hematuria, unspecified (4) Chronic kidney disease Current Visit: Yes Status: Chronic Assessment and plan: Patient has chronic kidney disease stage III, stable. -Replace electrolytes as needed. -Creatinine is elevated at 1.20, likely at baseline. Qualifiers: Chronic kidney disease stage: stage 3 (moderate) Qualified Code(s): N18.3 - Chronic kidney disease, stage 3 (moderate) (5) Acute encephalopathy Current Visit: Yes Status: Acute Assessment and plan: Patient's acute encephalopathy and confusion most likely secondary to sepsis. Patient's altered mental status has since improved. Patient is alert and oriented 3. (6) DVT prophylaxis Current Visit: Yes Status: Acute Assessment and plan: Heparin 5000 subcutaneous 12 - Subjective Interval history: Patient is an 81-year-old female with a history of bladder cancer who presented to the emergency department with chief complaint of confusion and lower abdominal pain. Patient is currently cared for by family members, who noted a change in her mentation in the 24 hours leading up to admission. Patient does not have any complaints upon arrival, but did have a fever at 100.5. Patient also had some dysuria. Family reports that she was weaker than normal. Upon arrival to the emergency department, patient was tachycardic. She had an elevated pulse rate of 115. Her respiratory rate was 20. White count was elevated at 22.2. Chest x-ray was unremarkable. Urinalysis was significant for the following: Turbid, red blood cells and white blood cells too numerous to count, many bacteria, nitrite positive, blood present. Patient was started on IV vancomycin and IV Rocephin. IV fluids were started. CT scan of the abdomen and pelvis demonstrated the following: Infiltrating mass in the right side of the bladder, large hiatal hernia, colonic diverticulosis, cholelithiasis. Lactic acid was 1.8. Patient was seen and examined at bedside this morning. Patient reports that she is feeling much better today. She reports that she does feel some weakness when attempting to stand, but otherwise feels well. She is alert and oriented 3. Has no other complaints at this time. - Constitutional Vitals: Temp Pulse Resp BP Pulse Ox 98.2 F 88 16 116/65 100 05/04/17 08:39 05/04/17 08:39 05/04/17 08:39 05/04/17 08:39 05/04/17 08:39 General appearance: Present: cooperative, pleasant, no acute distress - Head Head exam: Present: atraumatic, normocephalic - Eye Eye exam: Present: PERRL, conjuntiva pink, sclera anicteric Pupils: Present: PERRL - Neck Neck exam general surgery: Present: supple, trachea midline. Absent: lymphadenopathy - Respiratory Respiratory exam: Present: CTAB. Absent: accessory muscle use, rales, rhonchi, wheezes - Cardiovascular Cardiovascular exam: Present: RRR, +S1, +S2. Absent: diastolic murmur, gallop, rubs, systolic murmur - GI/Abdominal GI/Abdominal exam: Present: normal bowel sounds, soft, no peritoneal signs. Absent: distended, tenderness - Extremities Exam Extremities exam: Present: warm, radial pulses palpable and symmetrical. Absent : calf tenderness, cyanotic, pedal edema - Back Exam Additional comments: Right-sided nephrostomy tube observed. - Skin Skin exam: Present: dry, intact Internal Medicine: Result - Labs CBC & Chem 7: 05/04/17 04:33 05/04/17 04:05 Labs: Short CBC 05/04/17 Range/Units 04:33 WBC 29.0 H (4.3-11.1) K/mcL Hgb 9.0 L (11.5-15.4) g/dL Hct 28.9 L (35.3-44.9) % Plt Count 203 (140-400) K/mcL [facility] 05/04/17 04:05 Sodium 133 L Potassium 5.1 H D Chloride 108 Carbon Dioxide 19 BUN 24 H Creatinine 1.20 H Glucose 84 Calcium 7.6 L - ABG Interpretation ABG results: PT/INR, D-dimer PT 14.7 Seconds (9.4-12.1) H 05/03/17 02:49 Consult Discharge Plan - Plan Referrals: Keenan Poe DO [Primary Care Provider] -
--- NOTE | 2017-05-04 13:07 | Discharge Summary ---
<Nasir Black - Last Filed: 05/04/17 13:58> Date of Encounter: 05/04/17 Time of Encounter: 10:00 - Discharge Diagnosis (1) Sepsis Priority: Primary Status: Acute Qualifiers: Sepsis type: sepsis due to unspecified organism Qualified Code(s): A41.9 - Sepsis, unspecified organism (2) Bladder cancer Priority: Secondary Status: Chronic Qualifiers: Bladder location: unspecified site Qualified Code(s): C67.9 - Malignant neoplasm of bladder, unspecified (3) UTI (urinary tract infection) Priority: Secondary Status: Acute Qualifiers: Urinary tract infection type: site unspecified Hematuria presence: with hematuria Qualified Code(s): N39.0 - Urinary tract infection, site not specified; R31.9 - Hematuria, unspecified; R31.9 - Hematuria, unspecified (4) Chronic kidney disease Priority: Secondary Status: Chronic Qualifiers: Chronic kidney disease stage: stage 3 (moderate) Qualified Code(s): N18.3 - Chronic kidney disease, stage 3 (moderate) (5) Acute encephalopathy Priority: Secondary Status: Acute (6) DVT prophylaxis Priority: Secondary Status: Acute - Discharge Medications Prescriptions: Cefdinir [Omnicef] 300 mg PO DAILY #11 capsule Cefdinir [Omnicef] 300 mg PO BID #22 capsule Home Medications: Levothyroxine Sodium 75 mcg PO QAM 03/03/17 [History] Multivit-Min/FA/Lycopen/Lutein [Centrum Silver Tablet] 1 each PO DAILY 03/03/17 [History] amLODIPine [Norvasc] 5 mg PO DAILY 03/03/17 [History] Docusate [Colace] 100 mg PO BID capsule 03/10/17 [Rx] Ferrous Sulfate 325 mg PO DAILY@0800 tablet 03/10/17 [Rx] Cefdinir [Omnicef] 300 mg PO BID #22 capsule 05/04/17 [Rx] Cefdinir [Omnicef] 300 mg PO DAILY #11 capsule 05/04/17 [Rx] Allergies/Adverse Reactions: 3 Allergy/AdvReac Type Severity Reaction Status Date / Time levofloxacin Allergy See Verified 05/02/17 20:24 Comments Penicillins Allergy Hives Verified 04/12/17 09:12 Date of admission: 05/02/17 23:41 Primary care physician: Keenan Poe, Consults: 05/03/17 04:02 Consult to Palliative Care [CONS] Routine Comment: Consulting Provider: Palliative Care Tiffany Reason for Consult: DNR status, palliative treatment for bladder cancer Call Completed: No Discharging clinician: Nasir Black Anticipated date of discharge: 05/04/17 - Patient Status Disposition: Hospice - Medical Facility Condition: Fair Overall status at discharge: patient is progressing back to baseline - Discharge Instructions Instructions: Sepsis (DC) Follow Up With: Keenan Poe DO [Primary Care Provider] - - Diet and Activity Activity: increase activity as tolerated Diet: advance to your usual diet Hospital course: Patient is an 81-year-old female with a history of bladder cancer who presented to the emergency department with chief complaint of confusion and lower abdominal pain. Patient is currently cared for by family members, who noted a change in her mentation in the 24 hours leading up to admission. Patient did not have any complaints upon arrival, but did have a fever at 100.5. Patient also had some dysuria. Family reports that she was weaker than normal. Upon arrival to the emergency department, patient was tachycardic. She had an elevated pulse rate of 115. Her respiratory rate was 20. White count was elevated at 22.2. Chest x-ray was unremarkable. Urinalysis was significant for the following: Turbid, red blood cells and white blood cells too numerous to count, many bacteria, nitrite positive, blood present. Patient was started on IV vancomycin and IV Rocephin. IV fluids were started. CT scan of the abdomen and pelvis demonstrated the following: Infiltrating mass in the right side of the bladder, large hiatal hernia, colonic diverticulosis, cholelithiasis. Lactic acid was 1.8. Patient was seen and examined at bedside this morning. Patient reports that she is feeling much better today. She reports that she does feel some weakness when attempting to stand, but otherwise feels well. She is alert and oriented 3. Has no other complaints on date of discharge. Patient has completed 3 days of Rocefin; will be discharged on Omnicef for 11 days to complete a 14 day course of antibiotics. Patient will be discharged to hospice. - Time Spent with Patient Total time spent providing and/or coordinating discharge services: Greater than 30 minutes (40 minutes) - Constitutional Vitals: Temp Pulse Resp BP Pulse Ox 98.2 F 88 16 116/65 100 05/04/17 08:39 05/04/17 08:39 05/04/17 08:39 05/04/17 08:39 05/04/17 08:39 General appearance: Present: cooperative, pleasant, no acute distress - Head Head exam: Present: atraumatic, normocephalic - Eye Eye exam: Present: PERRL, conjuntiva pink, sclera anicteric Pupils: Present: PERRL - Neck Neck exam general surgery: Present: supple, trachea midline. Absent: lymphadenopathy - Respiratory Respiratory exam: Present: CTAB. Absent: accessory muscle use, rales, rhonchi, wheezes - Cardiovascular Cardiovascular exam: Present: RRR, +S1, +S2. Absent: diastolic murmur, gallop, rubs, systolic murmur - GI/Abdominal GI/Abdominal exam: Present: normal bowel sounds, soft, no peritoneal signs. Absent: distended, tenderness - Extremities Exam Extremities exam: Present: warm, radial pulses palpable and symmetrical. Absent : calf tenderness, cyanotic, pedal edema - Back Exam Additional comments: Nephrostomy tube observed on the right side. - Skin Skin exam: Present: dry, intact <Arnulfo Reddy - Last Filed: 05/04/17 14:35> Date of Encounter: 05/04/17 Date of admission: 05/02/17 23:41 Primary care physician: Keenan Poe, Consults: 05/03/17 04:02 Consult to Palliative Care [CONS] Routine Comment: Consulting Provider: Palliative Care Tiffany Reason for Consult: DNR status, palliative treatment for bladder cancer Call Completed: No Hospital course: Ms. Mcginnis is a 81 year old female - Time Spent with Patient Total time spent providing and/or coordinating discharge services: - Constitutional Vitals: Temp Pulse Resp BP Pulse Ox 98.2 F 88 16 116/65 100 05/04/17 08:39 05/04/17 08:39 05/04/17 08:39 05/04/17 08:39 05/04/17 08:39 - Attending Attestation Acute metabolic encephalopathy likely secondary to sepsis due to urinary tract infection Correction: The patient will be discharged on Omnicef 300 mg twice a day for 11 more days, 22 tablets will be dispensed on a new prescription Time spent on this admission: 40 minutes I examined this patient and my medical decision-making was reviewed with the Resident Physician. I agree with the documented findings, disposition and treatment plan as described except to the extent set forth below.
--- NOTE | 2017-05-04 13:59 | Physician Discharge Referral ---
<Nasir Black - Last Filed: 05/04/17 13:58> Home Health/Hosp Referral Info Transfer to: Hospice Provider in Charge Post Discharge: [employer] - Diagnosis (1) Sepsis Priority: Primary Status: Acute (2) Bladder cancer Priority: Secondary Status: Chronic (3) UTI (urinary tract infection) Priority: Primary Status: Acute (4) Chronic kidney disease Priority: Secondary Status: Chronic (5) Acute encephalopathy Priority: Secondary Status: Acute (6) DVT prophylaxis Priority: Secondary Status: Acute - Respiratory Orders Smoking Cessation: Smoking cessation has been advised. For more information, call the [place] Tobacco Quit Line at 4-605-FPOG-NOW. - Diet/Nutrition Diet/Nutrition Orders: Regular - Transfer Medications Prescriptions: Cefdinir [Omnicef] 300 mg PO DAILY #11 capsule Cefdinir [Omnicef] 300 mg PO BID #22 capsule Home Medications: Levothyroxine Sodium 75 mcg PO QAM 03/03/17 [History] Multivit-Min/FA/Lycopen/Lutein [Centrum Silver Tablet] 1 each PO DAILY 03/03/17 [History] amLODIPine [Norvasc] 5 mg PO DAILY 03/03/17 [History] Docusate [Colace] 100 mg PO BID capsule 03/10/17 [Rx] Ferrous Sulfate 325 mg PO DAILY@0800 tablet 03/10/17 [Rx] Cefdinir [Omnicef] 300 mg PO BID #22 capsule 05/04/17 [Rx] Cefdinir [Omnicef] 300 mg PO DAILY #11 capsule 05/04/17 [Rx] Allergies/Adverse Reactions: 3 Allergy/AdvReac Type Severity Reaction Status Date / Time levofloxacin Allergy See Verified 05/02/17 20:24 Comments Penicillins Allergy Hives Verified 04/12/17 09:12 Certification: Further, I certify that my clinical findings support that this patient is homebound (i.e. absences from home require considerable and taxing effort and are for medical reasons or restorationism services or infrequently or short duration when for other reasons) because: Homebound Reason: Patient requires assistance of a person or device to safely leave home Attestation: My signature below is to certify that this patient is under my care and that I, or nurse practitioner, or a physician's personal banking assistant working with me, has a face-to -face encounter with this patient. <MaureenArnulfo - Last Filed: 05/04/17 14:37> - Respiratory Orders Smoking Cessation: Smoking cessation has been advised. For more information, call the [place] Tobacco Quit Line at 7-006-SVYUNOW. Certification: Further, I certify that my clinical findings support that this patient is homebound (i.e. absences from home require considerable and taxing effort and are for medical reasons or restorationism services or infrequently or short duration when for other reasons) because: Attestation: My signature below is to certify that this patient is under my care and that I, or nurse practitioner, or a physician's personal banking assistant working with me, has a face-to -face encounter with this patient. Correction: The patient will be discharged on Omnicef 300 mg twice a day for 11 more days, 22 tablets will be dispensed on a new prescription I examined this patient and my medical decision-making was reviewed with the Resident Physician. I agree with the documented findings, disposition and treatment plan as described except to the extent set forth below.
[2017-05-04] MEDS ORDERED: Aminoglycoside Consult 1 EACH MC ONE (15:00)
== END 2017-05-04 15:01 | disposition hospice, inpatient (51) | DRG 698 ==
LOC: 2ANU 20:21 → EMEROO 20:21 → 2ANU 22:15 → SUATTDRO 23:41
PROVIDERS: ADMIT Internal Medicine; ATTEND Internal Medicine